=== PATIENT | female | born 1960 | race Caucasian/White ===

== ENCOUNTER → 2017-10-09 14:48 | Outpatient (CLI) | payer OTHER, SELFPAY ==
[2017-10-09 16:09] LABS: Erythrocyte Sedimentation Rate 2 MM/HR (0-20); Rheumatoid Factor 8.9 IU/mL (<12.0)
[2017-10-09 16:30] LABS: C-Reactive Protein Quant < 0.5 mg/dL (<1.0)
[2017-10-09 16:36] LABS: Thyroid Stimulating Hormone 1.77 uIU/mL (0.47-4.68)
[2017-10-09 17:13] LABS: Folate 18.4 ng/mL (2.76-20.0)
[2017-10-09 17:28] LABS: Vitamin B12 433 pg/mL (239-931)
[2017-10-11 11:32] LABS: CCP Antibody (IgG) < 16 Units (< 20)
[2017-10-11 23:20] LABS: ANA Screen POSITIVE (Negative); DNA Antibody Crithidia IFA NEGATIVE (Negative); Rheumatoid Factor <14 IU/mL; Sjogren Antiboday SS-A <1.0 NEG AI (<1.0 NEGATIVE); Sjogren Antiboday SS-B <1.0 NEG AI (<1.0 NEGATIVE); Sm Antibody <1.0 NEG AI (<1.0 NEGATIVE); Sm/RNP Antibody <1.0 NEG AI (<1.0 NEGATIVE)
== END ==
PROVIDERS: PCP Family Medicine; Visit Provider Internal Medicine
DX: M79.603 Pain in arm, unspecified (principal)
CPT/HCPCS: 36415; 82607; 82746; 83516; 84443; 85651; 86038; 86140; 86430

== ENCOUNTER → 2017-10-30 10:52 | Outpatient (CLI) | payer OTHER, SELFPAY | PROVIDERS: Family Provider Family Medicine; PCP Family Medicine; Visit Provider Internal Medicine | DX: M79.603 Pain in arm, unspecified (principal) | CPT/HCPCS: 95886; 95909 ==

== ENCOUNTER → 2017-12-12 16:25 | Outpatient (CLI) | payer OTHER, SELFPAY ==
[2017-12-12 17:43] LABS: Add Manual Diff / Slide Review NO; Eosinophils Percent Auto 2.9 % (2-4); Hematocrit 41.6 % (36-46); Hemoglobin 14.2 g/dL (12.0-16.0); Lymphocytes Percent Auto 37.5 % (25-40); Mean Corpuscular HGB Conc 34.1 % (30-36); Mean Corpuscular Hemoglobin 32.9 PG (26-34); Mean Corpuscular Volume 96.3 fL (80-100); Monocytes Percent Auto 7.8 % (3-14); Neutrophils Absolute Auto 4200 /uL (3000-5900); Neutrophils Percent Auto 50.8 % (50-75); Platelet Count 317 X10^3/uL (150-400); Red Blood Cell Count 4.32 X10^6/uL (4.0-5.2); Red Cell Distribution Width 12.9 % (11.6-14.8); White Blood Cell Count 8.3 X10^3/uL (4.5-11.0)
[2017-12-12 18:07] LABS: Alanine Aminotransferase 23 IU/L (9-52); Albumin 4.6 g/dL (3.5-5.0); Albumin Globulin Ratio 1.4 (1.0-2.8); Alkaline Phosphatase 50 U/L (38-126); Aspartate Aminotransferase 29 IU/L (14-36); BUN Creatinine Ratio 18.9 (6-22); Bilirubin Total 0.5 mg/dL (0.2-1.3); Blood Urea Nitrogen 17 mg/dL (7-17); Calcium 9.6 mg/dL (8.4-10.2); Carbon Dioxide 31 mmol/L (22-32); Chloride 99 mmol/L (98-107); Estimated Glomerular Filt Rate > 60.0 mL/min (>60); Globulin 3.3 g/dL (1.7-4.1); Glucose 94 mg/dL (70-100); HEMOLYSIS < 15 (0-50); Potassium 4.4 mmol/L (3.4-5.1); Sodium 141 mmol/L (137-145); Total Protein 7.9 g/dL (6.3-8.2)
[2017-12-12 18:14] LABS: C-Reactive Protein Quant < 0.5 mg/dL (<1.0)
[2017-12-12 18:17] LABS: Erythrocyte Sedimentation Rate 4 MM/HR (0-20)
[2017-12-15 02:49] LABS: ANA Screen, IFA Negative (Negative)
== END ==
PROVIDERS: PCP Family Medicine; Visit Provider Family Medicine
DX: M79.1 Myalgia (principal); R20.2 Paresthesia of skin; M79.601 Pain in right arm; M79.602 Pain in left arm
CPT/HCPCS: 36415; 80053; 85025; 85651; 86038; 86140

== ENCOUNTER → 2018-03-03 13:52 | Outpatient (CLI) | payer OTHER, SELFPAY ==
--- NOTE | 2018-03-03 | DI.MRI.S_ITS ---
PROCEDURE: MR CERVICAL SPINE WO CON INDICATIONS: CERVICALGIA TECHNIQUE: Noncontrast sagittal T1 spin echo and T2 fast spin echo, sagittal STIR, foraminal oblique sagittal T2 fast spin echo, and axial gradient echo or T2 fast spin echo through the cervical spine. COMPARISON: [facility], CR, XR CERVICAL SPINE WITH OBLIQUES, 01/09/2018, 12:16. FINDINGS: Image quality: Excellent. Alignment and Curvature: There is loss of normal cervical lordosis with focal kyphosis in the lower cervical spine. Grade 1 retrolisthesis of C5 on C6 and C6 on C7. Bone Marrow: Degenerative marrow signal changes are present at C6 and C7. Spinal Cord: Visualized spinal cord has normal size and signal. No cerebellar tonsillar herniation. Paraspinous Soft Tissues: No paravertebral masses. Prevertebral soft tissues are normal in thickness. C2-C3: Normal appearance. C3-C4: Normal appearance. C4-C5: Preserved disc height and disc signal. There is mild posterior disc bulge. The central canal is patent. Mild left foraminal stenosis. No right peristalsis. C5-C6: Vmcs-yl-pnnagguf loss disc height and disc desiccation. There is circumferential disc bulge and bilateral uncovertebral hypertrophy. The central canal is severely narrowed. There is mild flattening of the anterior cord at this level. Severe bilateral foraminal stenosis. C6-C7: Odty-zb-uwxrgwhe loss disc height and disc desiccation. There is circumferential disc bulge and bilateral uncovertebral hypertrophy. The central canal is severely narrowed. There is mild flattening of the anterior cord at this level. Severe bilateral foraminal stenosis. C7-T1: Normal appearance. IMPRESSION: 1. Multilevel degenerative disc disease and facet arthropathy as described. 2. Severe central canal stenosis at C5-C6 and C6-C7. 3. Severe foraminal stenosis at C5-C6 bilaterally and C6-C7 bilaterally. Dictated by: Maryann Moy M.D. on 03/03/2018 at 14:48 Approved by: Maryann Moy M.D. on 03/03/2018 at 17:46
== END ==
PROVIDERS: PCP Family Medicine; Visit Provider Specialist/Technologist Athletic Trainer
DX: M50.321 Other cervical disc degeneration at C4-C5 level (principal); M47.812 Spondylosis without myelopathy or radiculopathy, cervical region; M48.02 Spinal stenosis, cervical region
CPT/HCPCS: 72141

== ENCOUNTER → 2018-04-24 13:53 | Outpatient (CLI) | payer OTHER, SELFPAY ==
[2018-04-28 14:47] LABS: Fecal Immunochemical Test NOT DETECTED
== END ==
PROVIDERS: PCP Student in an Organized Health Care Education/Training Program; Visit Provider Student in an Organized Health Care Education/Training Program
DX: K92.1 Melena (principal); Z85.048 Personal history of other malignant neoplasm of rectum, rectosigmoid junction, and anus
CPT/HCPCS: 82274

== ENCOUNTER → 2018-05-03 16:42 | Outpatient (CLI) | payer OTHER, SELFPAY | PROVIDERS: PCP Student in an Organized Health Care Education/Training Program; Visit Provider Student in an Organized Health Care Education/Training Program | DX: K92.1 Melena (principal); Z85.048 Personal history of other malignant neoplasm of rectum, rectosigmoid junction, and anus ==

== ENCOUNTER → 2018-05-04 10:45 | Outpatient (CLI) | payer OTHER, SELFPAY ==
[2018-05-04 11:05] LABS: Occult Blood 1 Negative (Negative); Occult Blood 2 Negative (Negative)
[2018-05-04 11:06] LABS: Occult Blood 3 Negative (Negative)
== END ==
PROVIDERS: PCP Student in an Organized Health Care Education/Training Program; Visit Provider Student in an Organized Health Care Education/Training Program
DX: Z85.048 Personal history of other malignant neoplasm of rectum, rectosigmoid junction, and anus (principal)
CPT/HCPCS: 82270

== ENCOUNTER 2018-07-06 10:30 | Outpatient (RCR) | payer OTHER, SELFPAY ==
--- NOTE | 2018-06-26 15:15 | PT.OIE ---
Current Diagnoses Pain in arm, unspecified (06/25/18) Past Medical History (Last Updated 10/08/17 @ 12:41 by Berenice Salmeron) Allergy (Chronic) Hayfever (Chronic 1979) Seafood allergy (Chronic) Chicken pox (Resolved ~1965) Colon polyps (Resolved 2006) Colorectal cancer (Resolved 2006) Hemorrhoids (Resolved 2015) Hepatitis C (Resolved 1981) Past Surgical History (Last Updated 10/08/17 @ 12:30 by Berenice Salmeron) Anesthesia (Resolved) History of Achilles tendon repair (Resolved 2014) History of colonoscopy (Resolved 05/2015) History of repair of anterior cruciate ligament of right knee (Resolved 07/2005) Status post colectomy (Resolved 2006) Provider Visit Care Team Role Provider Type Indra Montana MD Attending Provider Physician Primary Care Provider Specialty: Internal Medicine Address: [address] [place] [address] Email: Physical Therapy Initial Evaluation PT-OP-A Visit Information Start: 06/25/18 09:51 Freq: Status: Active Protocol: Document 06/25/18 09:45 SAK (Rec: 06/25/18 15:13 [facility] [id number]) Out-Patient Physical Therapy Visit Information Visit Information Visit Type Initial Evaluation Visit Start Time 09:45 Visit Stop Time 10:40 Total Visit Minutes 55 Visit Number 1 Number of CASH MANAGEMENT OFFICER Visits 0 Evaluation Information Evaluation Date 06/25/18 PT-OP-B Current Condition Start: 06/25/18 09:51 Freq: Status: Active Protocol: Document 06/25/18 09:45 SAK (Rec: 06/25/18 15:13 [facility] [id number]) Current Condition History of Current Condition Onset Date April 2017 Current Complaints function-limiting bilateral neck and shoulder pain History of Current Condition Reports pain started after being very active and busy with work, lifting activities, gardening. Pain worsened to the point that she was unable to sleep, hands swelled severely. Was diagnosed with OA. Instead of medication is taking Tumeric and an herbal joint supplement which she reports being helpful. Pain and hand swelling have both improved some but persists and wants PT to see what else she can do for the pain. Prior Treatments and Tests EMG negative MRI and x-rays: osteoarthritis Future Testing and Treatments Planned None planned at this time. Treatment Goals Patient/Caregiver Goals Minimize pain, improve strength and flexibility, learn how to protect her joints. Prior Functional Status Baseline Function- ADL's Independent Baseline Function- Mobility Independent Baseline Function- Gait indep Baseline Function- Work/School indep without difficulty Baseline Function- Recreation/Hobbies no limitations Current Functional Impairments (Reported) Functional Limitations- ADL's some pain Functional Limitations- Mobility/Gait no problem Functional Limitations- Work/School some pain Functional Limitations- Recreation/ limited by pain and decreased Hobbies activity over the past year due to the pain PT-OP-C Subjective Start: 06/25/18 09:51 Freq: Status: Active Protocol: Document 06/25/18 09:45 SAK (Rec: 06/25/18 15:13 SAK [id number]) Patient Questionnaires Quick Dash- Upper Extremity Quick Dash UE Score 18 Quick Dash UE Impairment 1 to 19% Impaired (Score 1-19) OP-PT Pain Assessment Pain Assessment Grid Paper Pain Assessment Grid Completed Yes Location lupe cervical spine, shoulders and UE's Intensity 3 Scale Used Numeric (1 - 10) PT-OP-F Manual Assessment Start: 06/25/18 09:51 Freq: Status: Active Protocol: Document 06/25/18 09:45 SAK (Rec: 06/26/18 08:59 SAK [id number]) Manual Assessments Joint Mobility Assessment Joint Mobility Assessment decreased posterior glide bilateral GH joints, decreased AP C6-T3 PT-OP-H Neuro Start: 06/25/18 09:51 Freq: Status: Active Protocol: Document 06/25/18 09:45 SAK (Rec: 06/26/18 08:59 SAK [id number]) Sensation Evaluation Gross Sensation Gross Sensation Left UE Impaired Right UE Impaired Sensation Description Heaviness Pain Dermatome Impairments T12 PT-OP-J Posture/Palpation/Skin Start: 06/25/18 09:51 Freq: Status: Active Protocol: Document 06/25/18 09:45 SAK (Rec: 06/26/18 08:59 SAK [id number]) Posture Evaluation Position Sitting Head/C-Spine Posture Forward Head T-Spine Posture Increased Kyphosis L-Spine Posture Increased Lordosis Shoulder Posture (L) Rounded (R) Rounded Palpation Assessment Location upper traps Palpation Findings Soft Tissue Tightness Muscle Guarding Trigger Point c/s Palpation Findings Soft Tissue Tightness Muscle Guarding Skin Assessment Edema Assessment bilateral hands Edema Degree 2+ Edema Appearance Discolored Puffy Subjective Edema Description Tightness PT-OP-K Range of Motion Start: 06/25/18 09:51 Freq: Status: Active Protocol: Document 06/25/18 09:45 SAK (Rec: 06/26/18 08:59 SAK [id number]) Cervical Spine Range of Motion Cervical Spine Active Testing Position Sitting Flexion 55 Extension 60 Rotation Left 50 Rotation Right 55 Lateral Flexion Left 40 Lateral Flexion Right 45 ROM Limitations Soft Tissue Tightness Bony Restriction Pain Shoulder Goniometric Range of Motion Shoulder Measured in Degrees Left Active Testing Position Sitting Flexion 165 Extension 40 Abduction 160 External Rotation at 45 degrees 60 Abduction Internal Rotation Behind Back (text) T5 Right Active Testing Position Sitting Flexion 165 Extension 40 Abduction 160 External Rotation at 45 degrees 65 Abduction Internal Rotation Behind Back (text) T3 Shoulder ROM Limitations Shoulder ROM Limitations Soft Tissue Tightness Bony Restriction Pain Elbow/Forearm Range of Motion Elbow/Forearm Measured in Degrees lupe Elbow/Forearm ROM WFL Yes Wrist Goniometric Range of Motion Wrist Measured in Degrees lupe Wrist ROM WFL Yes Finger Goniometric Range of Motion Finger ROM Limitations Finger ROM Limitations Swelling PT-OP-L Special Tests Start: 06/25/18 09:51 Freq: Status: Active Protocol: Document 06/25/18 09:45 SAK (Rec: 06/26/18 08:59 [facility] [id number]) Special Tests Cervical Spine Special Tests Upper Limb Tension Test Test Results positive lupe Foraminal Compression Test Results positive increase in pain Traction Test Results positive decrease pain Shoulder Special Tests Elevation Impingement Test Results negative lupe Drop Arm Rotator Cuff Test Results negative lupe Belly Press Test Results negative lupe PT-OP-M Strength Start: 06/25/18 09:51 Freq: Status: Active Protocol: Document 06/25/18 09:45 SAK (Rec: 06/26/18 15:15 SAK [id number]) Cervical Spine Strength Cervical Spine Manual Muscle Testing Testing Position Sitting Flexion (C1-2) 4+ Good+ Extension 4+ Good+ Rotation Left 4+ Good+ Rotation Right 4+ Good+ Lateral Flexion Left (C3) 4+ Good+ Lateral Flexion Right (C3) 4+ Good+ Shoulder Strength Shoulder Manual Muscle Testing lupe Flexion 4 Good Extension 4 Good Abduction (C5) 4 Good Adduction 4- Good- External Rotation 4 Good Elbow/Forearm Strength Elbow and Forearm Manual Muscle Testing lupe Flexion (C6) 4+ Good+ Extension (C7) 4+ Good+ PT-OP-Q Treatments Start: 06/25/18 09:51 Freq: Status: Active Protocol: Document 06/25/18 09:45 SAK (Rec: 06/26/18 15:15 SAK [id number]) Self-Care/Home Management Treatment Education Patient Education Home Exercise Program Pain Management Posture Other Education Issued written information regarding posture and HEP Activities Self-Care/Home Management Activities Use of heat for neck and shoulder pain, paraffin for hands, isotoner gloves or compression gloves for edema in hands PT-OP-R Modalities Start: 06/25/18 09:51 Freq: Status: Active Protocol: Document 06/25/18 09:45 SAK (Rec: 06/26/18 15:15 SAK [id number]) Hot Pack/Cold Pack Treatment neck, lupe shoulders Patient Position Hooklying Treatment Duration (minutes) 15 Patient Tolerance Good PT-OP-T Assessment and Plan Start: 06/25/18 09:51 Freq: Status: Active Protocol: Document 06/25/18 09:45 SAK (Rec: 06/26/18 15:15 [facility] [id number]) Physical Therapy Assessment Rehab Potential Rehabilitation Potential Good Evaluation Complexity Number of Personal Factors/Comorbidities 1-2 Number of Body Systems Impaired 3 Clinical Presentation at Evaluation Evolving Impairments Impairments Pain Posture ROM Goals 3 Impairment weakness of posterior chain musculature Short Term Goal (STG) Instruct patient in HEP STG Duration 2 wks Usp Goal (LTG) Strength WNL 2 Impairment Decreased neck and shoulder ROM Short Term Goal (STG) Instruct patient in HEP for neck and shoulder ROM STG Duration 2 wk2 Kennel Operator Goal (LTG) Improve ROM to neck and shoulder to WNL to allow for patient to do all usual activities LTG Duration 2 months 1 Impairment function-limiting pain Short Term Goal (STG) Educate patient regarding posture, joint protection, pain management, HEP STG Duration 2 wks Usp Goal (LTG) Patient to demonstrate good understanding of neutral postural alignment, joint protection and pain managment principles and be independent with HEP LTG Duration 2 months Assessment Summary Assessment Patient presents with function -limiting pain in neck, shoulders, and hands related to diagnosis of OA. Patient previously very physically active, but due to severity of pain has significantly cut back on her usual activities. She presents with decreased ROM and strength, postural dysfunction; would benefit from skilled physical therapy intervention to address her goals. She is highly motivated and anticipate short course of physical therapy with her continueing HEP and pain managment independently Physical Therapy Plan Frequency and Duration Frequency of Treatment 1x/Week Duration of Treatment 2 months Plan of Care Start Date 06/25/18 Therapeutic Interventions Therapeutic Interventions Aquatic Therapy Home Exercise Program Manual Therapy Patient/Caregiver Education Self-Care/Home Management Soft Tissue Mobilization Taping Therapeutic Activities Therapeutic Exercises Modalities Cold Pack/Ice Massage Electric Stimulation Hot Packs Ultrasound Next Visit Focus/Plan Next Note Type Treatment Note Next Visit Plan Review HEP, progress as tolerated.
--- NOTE | 2018-06-26 15:15 | PT.OPPOC ---
Current Diagnoses Pain in arm, unspecified (06/25/18) Provider Visit Care Team Role Provider Type Indra Montana MD Attending Provider Physician Primary Care Provider Specialty: Internal Medicine Address: [address] [place] [address], [id number] Email: Plan Of Care PT-OP-T Assessment and Plan Start: 06/25/18 09:51 Freq: Status: Active Protocol: Document 06/25/18 09:45 [facility] (Rec: 06/26/18 15:15 [facility] [id number]) Physical Therapy Assessment Rehab Potential Rehabilitation Potential Good Evaluation Complexity Number of Personal Factors/Comorbidities 1-2 Number of Body Systems Impaired 3 Clinical Presentation at Evaluation Evolving Impairments Impairments Pain Posture ROM Goals 3 Impairment weakness of posterior chain musculature Short Term Goal (STG) Instruct patient in HEP STG Duration 2 wks Usp Goal (LTG) Strength WNL 2 Impairment Decreased neck and shoulder ROM Short Term Goal (STG) Instruct patient in HEP for neck and shoulder ROM STG Duration 2 wk2 Usp Goal (LTG) Improve ROM to neck and shoulder to WNL to allow for patient to do all usual activities LTG Duration 2 months 1 Impairment function-limiting pain Short Term Goal (STG) Educate patient regarding posture, joint protection, pain management, HEP STG Duration 2 wks Usp Goal (LTG) Patient to demonstrate good understanding of neutral postural alignment, joint protection and pain managment principles and be independent with HEP LTG Duration 2 months Assessment Summary Assessment Patient presents with function -limiting pain in neck, shoulders, and hands related to diagnosis of OA. Patient previously very physically active, but due to severity of pain has significantly cut back on her usual activities. She presents with decreased ROM and strength, postural dysfunction; would benefit from skilled physical therapy intervention to address her goals. She is highly motivated and anticipate short course of physical therapy with her continueing HEP and pain managment independently Physical Therapy Plan Frequency and Duration Frequency of Treatment 1x/Week Duration of Treatment 2 months Plan of Care Start Date 06/25/18 Therapeutic Interventions Therapeutic Interventions Aquatic Therapy Home Exercise Program Manual Therapy Patient/Caregiver Education Self-Care/Home Management Soft Tissue Mobilization Taping Therapeutic Activities Therapeutic Exercises Modalities Cold Pack/Ice Massage Electric Stimulation Hot Packs Ultrasound Next Visit Focus/Plan Next Note Type Treatment Note Next Visit Plan Review HEP, progress as tolerated. Plan of Care Dates Plan of Care Start Date 06/25/18 Please Sign and Return: I have reviewed this Plan of Care and certify that the skilled therapy services above are required to meet the patient?s needs. Physician Signature Date Printed Name and Credentials Clinical Instructor Signature Printed Name and Credentials
--- NOTE | 2018-07-06 11:23 | PT.OTN ---
Current Diagnoses Pain in arm, unspecified (07/06/18) Physical Therapy Treatment Note PT-OP-A Visit Information Start: 06/25/18 09:51 Freq: Status: Active Protocol: Document 07/06/18 10:30 DCW (Rec: 07/06/18 11:23 [facility]W [id number]) Out-Patient Physical Therapy Visit Information Visit Information Visit Type Treatment Note Visit Start Time 10:30 Visit Stop Time 11:15 PT-OP-B Current Condition Start: 06/25/18 09:51 Freq: Status: Active Protocol: Document 06/25/18 09:45 SAK (Rec: 06/25/18 15:13 SAK [id number]) Current Condition History of Current Condition Onset Date April 2017 Current Complaints function-limiting bilateral neck and shoulder pain History of Current Condition Reports pain started after being very active and busy with work, lifting activities, gardening. Pain worsened to the point that she was unable to sleep, hands swelled severely. Was diagnosed with OA. Instead of medication is taking Tumeric and an herbal joint supplement which she reports being helpful. Pain and hand swelling have both improved some but persists and wants PT to see what else she can do for the pain. Prior Treatments and Tests EMG negative MRI and x-rays: osteoarthritis Future Testing and Treatments Planned None planned at this time. Treatment Goals Patient/Caregiver Goals Minimize pain, improve strength and flexibility, learn how to protect her joints. Prior Functional Status Baseline Function- ADL's Independent Baseline Function- Mobility Independent Baseline Function- Gait indep Baseline Function- Work/School indep without difficulty Baseline Function- Recreation/Hobbies no limitations Current Functional Impairments (Reported) Functional Limitations- ADL's some pain Functional Limitations- Mobility/Gait no problem Functional Limitations- Work/School some pain Functional Limitations- Recreation/ limited by pain and decreased Hobbies activity over the past year due to the pain PT-OP-C Subjective Start: 06/25/18 09:51 Freq: Status: Active Protocol: Document 07/06/18 10:30 DCW (Rec: 07/06/18 11:23 DCW [id number]) OP-PT Subjective Patient Comments Patient Comments Pt has been compliant with her HEP. Admits her arms aren't as bad as they were 9 months ago, but still not great. PT-OP-F Manual Assessment Start: 06/25/18 09:51 Freq: Status: Active Protocol: Document 06/25/18 09:45 SAK (Rec: 06/26/18 08:59 SAK [id number]) Manual Assessments Joint Mobility Assessment Joint Mobility Assessment decreased posterior glide bilateral GH joints, decreased AP C6-T3 PT-OP-H Neuro Start: 06/25/18 09:51 Freq: Status: Active Protocol: Document 06/25/18 09:45 SAK (Rec: 06/26/18 08:59 SAK [id number]) Sensation Evaluation Gross Sensation Gross Sensation Left UE Impaired Right UE Impaired Sensation Description Heaviness Pain Dermatome Impairments T12 PT-OP-J Posture/Palpation/Skin Start: 06/25/18 09:51 Freq: Status: Active Protocol: Document 06/25/18 09:45 SAK (Rec: 06/26/18 08:59 SAK [id number]) Posture Evaluation Position Sitting Head/C-Spine Posture Forward Head T-Spine Posture Increased Kyphosis L-Spine Posture Increased Lordosis Shoulder Posture (L) Rounded (R) Rounded Palpation Assessment Location upper traps Palpation Findings Soft Tissue Tightness Muscle Guarding Trigger Point c/s Palpation Findings Soft Tissue Tightness Muscle Guarding Skin Assessment Edema Assessment bilateral hands Edema Degree 2+ Edema Appearance Discolored Puffy Subjective Edema Description Tightness PT-OP-K Range of Motion Start: 06/25/18 09:51 Freq: Status: Active Protocol: Document 06/25/18 09:45 SAK (Rec: 06/26/18 08:59 SAK [id number]) Cervical Spine Range of Motion Cervical Spine Active Testing Position Sitting Flexion 55 Extension 60 Rotation Left 50 Rotation Right 55 Lateral Flexion Left 40 Lateral Flexion Right 45 ROM Limitations Soft Tissue Tightness Bony Restriction Pain Shoulder Goniometric Range of Motion Shoulder Measured in Degrees Left Active Testing Position Sitting Flexion 165 Extension 40 Abduction 160 External Rotation at 45 degrees 60 Abduction Internal Rotation Behind Back (text) T5 Right Active Testing Position Sitting Flexion 165 Extension 40 Abduction 160 External Rotation at 45 degrees 65 Abduction Internal Rotation Behind Back (text) T3 Shoulder ROM Limitations Shoulder ROM Limitations Soft Tissue Tightness Bony Restriction Pain Elbow/Forearm Range of Motion Elbow/Forearm Measured in Degrees lupe Elbow/Forearm ROM WFL Yes Wrist Goniometric Range of Motion Wrist Measured in Degrees lupe Wrist ROM WFL Yes Finger Goniometric Range of Motion Finger ROM Limitations Finger ROM Limitations Swelling PT-OP-L Special Tests Start: 06/25/18 09:51 Freq: Status: Active Protocol: Document 06/25/18 09:45 SAK (Rec: 06/26/18 08:59 SAK [id number]) Special Tests Cervical Spine Special Tests Upper Limb Tension Test Test Results positive lupe Foraminal Compression Test Results positive increase in pain Traction Test Results positive decrease pain Shoulder Special Tests Elevation Impingement Test Results negative lupe Drop Arm Rotator Cuff Test Results negative lupe Belly Press Test Results negative lupe PT-OP-M Strength Start: 06/25/18 09:51 Freq: Status: Active Protocol: Document 06/25/18 09:45 SAK (Rec: 06/26/18 15:15 SAK [id number]) Cervical Spine Strength Cervical Spine Manual Muscle Testing Testing Position Sitting Flexion (C1-2) 4+ Good+ Extension 4+ Good+ Rotation Left 4+ Good+ Rotation Right 4+ Good+ Lateral Flexion Left (C3) 4+ Good+ Lateral Flexion Right (C3) 4+ Good+ Shoulder Strength Shoulder Manual Muscle Testing lupe Flexion 4 Good Extension 4 Good Abduction (C5) 4 Good Adduction 4- Good- External Rotation 4 Good Elbow/Forearm Strength Elbow and Forearm Manual Muscle Testing lupe Flexion (C6) 4+ Good+ Extension (C7) 4+ Good+ PT-OP-Q Treatments Start: 06/25/18 09:51 Freq: Status: Active Protocol: Document 07/06/18 10:30 DCW (Rec: 07/06/18 11:23 DCW [id number]) Therapeutic Exercises Supine Exercises Horizontal Adduction Supine Exercise Name Horizontal Adduction Side bilateral Resistance 5# Serratus Punch Supine Exercise Name Supine Punch Side bilateral Resistance 5# Standing Exercises Shoulder Flexion Standing Exercise Name Flexion Side bilateral Resistance 5# Shoulder Abduction Standing Exercise Name Abduction Side bilateral Resistance 5# Chest Press Standing Exercise Name Chest Press Side bilateral Resistance 10# Equipment Used Wand Horizontal Abduction Standing Exercise Name Shoulder Horizontal Abduction Side bilateral Resistance Lv 2 Equipment Used T-band Rows Standing Exercise Name Rows Side bilateral Resistance Lv 3 Equipment Used T-band Shoulder Extension Standing Exercise Name Extension Side bilateral Resistance Lv 3 Equipment Used T-band Manual Therapy Treatment Soft Tissue Mobilization Upper Trap Body Location UT Mobilization Type Sustained Pressure Trigger Point Release Intensity/Depth Moderate Body Position Hooklying Joint Mobilizations Cervical Spine Joint C-spine Direction P->A Grade III Body Position Supine Comments Especially C3 and C4 Manual Traction Cervical Details Cervical Traction Body Position Supine PT-OP-R Modalities Start: 06/25/18 09:51 Freq: Status: Active Protocol: Document 07/06/18 10:30 DCW (Rec: 07/06/18 11:23 DCW [id number]) Electric Stimulation Electric Stimulation Interferential Current (IFC) Body Location C-spine/Shoulders Duration (Minutes) 15 Patient Position Supine Combined With Heat/Cold Hot Pack PT-OP-T Assessment and Plan Start: 06/25/18 09:51 Freq: Status: Active Protocol: Document 07/06/18 10:30 DCW (Rec: 07/06/18 11:23 DCW [id number]) Physical Therapy Assessment Impairments Impairments Pain Posture ROM Goals 3 Impairment weakness of posterior chain musculature Short Term Goal (STG) Instruct patient in HEP STG Duration 2 wks Painter Set Goal (LTG) Strength WNL 2 Impairment Decreased neck and shoulder ROM Short Term Goal (STG) Instruct patient in HEP for neck and shoulder ROM STG Duration 2 wk2 Half-Way Goal (LTG) Improve ROM to neck and shoulder to WNL to allow for patient to do all usual activities LTG Duration 2 months 1 Impairment function-limiting pain Short Term Goal (STG) Educate patient regarding posture, joint protection, pain management, HEP STG Duration 2 wks Half-Way Goal (LTG) Patient to demonstrate good understanding of neutral postural alignment, joint protection and pain management principles and be independent with HEP LTG Duration 2 months Assessment Summary Assessment Pt tolerated manual therapy well, and is very motivated to continue working on her HEP. Physical Therapy Plan Frequency and Duration Frequency of Treatment 1x/Week Duration of Treatment 2 months Plan of Care Start Date 06/25/18 Plan of Care End Date 08/25/18 Therapeutic Interventions Therapeutic Interventions Aquatic Therapy Home Exercise Program Manual Therapy Patient/Caregiver Education Self-Care/Home Management Soft Tissue Mobilization Taping Therapeutic Activities Therapeutic Exercises Modalities Cold Pack/Ice Massage Electric Stimulation Hot Packs Ultrasound Next Visit Focus/Plan Next Note Type Treatment Note Next Visit Plan Review HEP, progress as tolerated.
--- NOTE | 2018-10-12 10:27 | PT.OPDS ---
Current Diagnoses Pain in arm, unspecified (07/06/18) Provider Visit Care Team Role Provider Type Indra Montana MD Attending Provider Physician Primary Care Provider Specialty: Internal Medicine Address: [address] [place] [address], [facility] Email: Visit Number Visit Number 1 Discharge Summary PT-OP-B Current Condition Start: 06/25/18 09:51 Freq: Status: Active Protocol: Document 06/25/18 09:45 SAK (Rec: 06/25/18 15:13 SAK [id number]) Current Condition History of Current Condition Onset Date April 2017 Current Complaints function-limiting bilateral neck and shoulder pain History of Current Condition Reports pain started after being very active and busy with work, lifting activities, gardening. Pain worsened to the point that she was unable to sleep, hands swelled severely. Was diagnosed with OA. Instead of medication is taking Tumeric and an herbal joint supplement which she reports being helpful. Pain and hand swelling have both improved some but persists and wants PT to see what else she can do for the pain. Prior Treatments and Tests EMG negative MRI and x-rays: osteoarthritis Future Testing and Treatments Planned None planned at this time. Treatment Goals Patient/Caregiver Goals Minimize pain, improve strength and flexibility, learn how to protect her joints. Prior Functional Status Baseline Function- ADL's Independent Baseline Function- Mobility Independent Baseline Function- Gait indep Baseline Function- Work/School indep without difficulty Baseline Function- Recreation/Hobbies no limitations Current Functional Impairments (Reported) Functional Limitations- ADL's some pain Functional Limitations- Mobility/Gait no problem Functional Limitations- Work/School some pain Functional Limitations- Recreation/ limited by pain and decreased Hobbies activity over the past year due to the pain PT-OP-C Subjective Start: 06/25/18 09:51 Freq: Status: Active Protocol: Document 07/06/18 10:30 DCW (Rec: 07/06/18 11:23 DCW [id number]) OP-PT Subjective Patient Comments Patient Comments Pt has been compliant with her HEP. Admits her arms aren't as bad as they were 9 months ago, but still not great. PT-OP-F Manual Assessment Start: 06/25/18 09:51 Freq: Status: Active Protocol: Document 06/25/18 09:45 SAK (Rec: 06/26/18 08:59 [facility] [id number]) Manual Assessments Joint Mobility Assessment Joint Mobility Assessment decreased posterior glide bilateral GH joints, decreased AP C6-T3 PT-OP-H Neuro Start: 06/25/18 09:51 Freq: Status: Active Protocol: Document 06/25/18 09:45 SAK (Rec: 06/26/18 08:59 SAK [id number]) Sensation Evaluation Gross Sensation Gross Sensation Left UE Impaired Right UE Impaired Sensation Description Heaviness Pain Dermatome Impairments T12 PT-OP-J Posture/Palpation/Skin Start: 06/25/18 09:51 Freq: Status: Active Protocol: Document 06/25/18 09:45 SAK (Rec: 06/26/18 08:59 SAK [id number]) Posture Evaluation Position Sitting Head/C-Spine Posture Forward Head T-Spine Posture Increased Kyphosis L-Spine Posture Increased Lordosis Shoulder Posture (L) Rounded (R) Rounded Palpation Assessment Location upper traps Palpation Findings Soft Tissue Tightness Muscle Guarding Trigger Point c/s Palpation Findings Soft Tissue Tightness Muscle Guarding Skin Assessment Edema Assessment bilateral hands Edema Degree 2+ Edema Appearance Discolored Puffy Subjective Edema Description Tightness PT-OP-K Range of Motion Start: 06/25/18 09:51 Freq: Status: Active Protocol: Document 06/25/18 09:45 SAK (Rec: 06/26/18 08:59 [facility] [id number]) Cervical Spine Range of Motion Cervical Spine Active Testing Position Sitting Flexion 55 Extension 60 Rotation Left 50 Rotation Right 55 Lateral Flexion Left 40 Lateral Flexion Right 45 ROM Limitations Soft Tissue Tightness Bony Restriction Pain Shoulder Goniometric Range of Motion Shoulder Left Active Testing Position Sitting Flexion 165 Extension 40 Abduction 160 External Rotation at 45 degrees 60 Abduction Internal Rotation Behind Back (text) T5 Right Active Testing Position Sitting Flexion 165 Extension 40 Abduction 160 External Rotation at 45 degrees 65 Abduction Internal Rotation Behind Back (text) T3 Shoulder ROM Limitations Shoulder ROM Limitations Soft Tissue Tightness Bony Restriction Pain Elbow/Forearm Range of Motion Elbow/Forearm lupe Elbow/Forearm ROM WFL Yes Wrist Goniometric Range of Motion Wrist lupe Wrist ROM WFL Yes Finger Goniometric Range of Motion Finger ROM Limitations Finger ROM Limitations Swelling PT-OP-L Special Tests Start: 06/25/18 09:51 Freq: Status: Active Protocol: Document 06/25/18 09:45 SAK (Rec: 06/26/18 08:59 [facility] [id number]) Special Tests Cervical Spine Special Tests Upper Limb Tension Test Test Results positive lupe Foraminal Compression Test Results positive increase in pain Traction Test Results positive decrease pain Shoulder Special Tests Elevation Impingement Test Results negative lupe Drop Arm Rotator Cuff Test Results negative lupe Belly Press Test Results negative lupe PT-OP-M Strength Start: 06/25/18 09:51 Freq: Status: Active Protocol: Document 06/25/18 09:45 [facility] (Rec: 06/26/18 15:15 [facility] [id number]) Cervical Spine Strength Cervical Spine Manual Muscle Testing Testing Position Sitting Flexion (C1-2) 4+ Good+ Extension 4+ Good+ Rotation Left 4+ Good+ Rotation Right 4+ Good+ Lateral Flexion Left (C3) 4+ Good+ Lateral Flexion Right (C3) 4+ Good+ Shoulder Strength Shoulder Manual Muscle Testing lupe Flexion 4 Good Extension 4 Good Abduction (C5) 4 Good Adduction 4- Good- External Rotation 4 Good Elbow/Forearm Strength Elbow and Forearm Manual Muscle Testing lupe Flexion (C6) 4+ Good+ Extension (C7) 4+ Good+ PT-OP-T Assessment and Plan Start: 06/25/18 09:51 Freq: Status: Active Protocol: Document 10/12/18 10:26 [facility] (Rec: 10/12/18 10:27 [facility] [id number]) Physical Therapy Plan Discharge Physical Therapy Discharge Reasons No Longer Attending PT
== END 2018-10-12 15:00 | disposition home or self-care (01) ==
LOC: PHYS 10:30
PROVIDERS: PCP Student in an Organized Health Care Education/Training Program; Visit Provider Student in an Organized Health Care Education/Training Program
DX: M79.603 Pain in arm, unspecified (principal)
CPT/HCPCS: 97010; 97014; 97110; 97140; 97162; 97535; G0283

== ENCOUNTER → 2019-04-24 12:38 | Outpatient (CLI) | payer OTHER, SELFPAY ==
--- NOTE | 2019-04-24 12:40 | DI.MG.S_ITS ---
BILATERAL DIGITAL SCREENING MAMMOGRAM 3D/2D WITH CAD: 04/24/2019 CLINICAL: Routine screening. Family history of breast cancer. Comparison is made to exams dated: 03/04/2017 mammogram, 02/07/2016 mammogram, and 02/03/2015 mammogram - [facility]. The tissue of both breasts is extremely dense, which lowers the sensitivity of mammography. Current study was also evaluated with a Computer Aided Detection (CAD) system. No significant masses, calcifications, or other findings are seen in either breast. There has been no significant interval change. IMPRESSION: NEGATIVE There is no mammographic evidence of malignancy. A 1 year screening mammogram is recommended. This exam was interpreted at Station ID: [id number]. NOTE: For mammograms, a report in lay terms will be sent to the patient. Approximately 15% of breast malignancies will not be visualized mammographically. In the management of a palpable breast mass, a negative mammogram must not discourage biopsy of a clinically suspicious lesion. Electronically Signed By: Milton romo/sydnee:04/26/2019 13:49:32 letter sent: Normal Exam ACR BI-RADS Category 1: Negative 3341F
== END ==
PROVIDERS: PCP Student in an Organized Health Care Education/Training Program; Visit Provider Student in an Organized Health Care Education/Training Program
DX: Z12.31 Encounter for screening mammogram for malignant neoplasm of breast (principal); Z80.3 Family history of malignant neoplasm of breast
CPT/HCPCS: 77063; 77067

== ENCOUNTER → 2019-05-28 11:06 | Outpatient (CLI) | payer OTHER, SELFPAY ==
--- NOTE | 2019-05-28 11:07 | DI.MRI.S_ITS ---
PROCEDURE: MR KNEE RT WO CON INDICATIONS: right knee pain TECHNIQUE: Noncontrast sagittal PD fast spin echo and T2 fast spin echo with fat saturation, sagittal 3-D FLASH with fat saturation; coronal T1 spin echo and PD fast spin echo with fat saturation, and axial PD fast spin echo with fat saturation through the knee. COMPARISON: None. FINDINGS: Image quality: Diagnostic. Menisci: Complex oblique tear involving posterior horn of medial meniscus is seen extending to superior articulating surface. There is no focal lateral meniscal tear. The The meniscal root ligaments appear intact. Cruciate ligaments: Patient is status post prior anterior cruciate ligament repair. ACL graft is intact. PCL is intact. Medial structures: Low to moderate grade MCL sprain/partial thickness tear is seen. The posterior oblique ligament, semimembranosus tendon insertions, oblique popliteal ligament, and meniscocapsular junction appear intact. Visualized portions of the pes anserinus tendons appear normal. No abnormal bursal fluid. Lateral structures: The lateral collateral ligament, long and short heads of the biceps femoris tendon appear intact. The popliteus tendon appears normal; the popliteofibular ligament appears intact. The posterosuperior and anteroinferior popliteomeniscal fascicles appear intact. The arcuate and fabellofibular ligaments appear intact, on either side of the lateral inferior geniculate artery. Iliotibial band appears normal. Anterior structures: The quadriceps and patellar tendons appear intact. Patellar alignment is normal. No femoral trochlear dysplasia or ventral trochlear prominence. No edema in the infrapatellar fat pad. Bones and cartilage: Post surgical changes are noted in distal femur and proximal tibia. No bone marrow contusions or fractures. Chondromalacia involving articulating cartilage and medial femoral tibial compartment is seen. Low-grade chondromalacia involving lateral facet of patella cartilage is also noted. Joint space: There is small amount of joint fluid. Small popliteal cyst is seen. Normal appearing synovial plicae are incidentally noted. IMPRESSION: 1. Prior ACL repair with post surgical changes. ACL graft is intact. PCL is intact. 2. Complex oblique tear involving posterior horn of medial meniscus extending to superior articulating surface. No focal lateral meniscal tear. 3. Low to moderate grade proximal MCL sprain/partial thickness tear. 4. Low-grade chondromalacia involving weight-bearing portion of medial femoral condyle and lateral facet of patella cartilage. Dictated by: Surjit Echavarria M.D. on 05/28/2019 at 12:40 Approved by: Surjit Echavarria M.D. on 05/28/2019 at 15:52
== END ==
PROVIDERS: PCP Student in an Organized Health Care Education/Training Program; Referring Provider Student in an Organized Health Care Education/Training Program; Visit Provider Student in an Organized Health Care Education/Training Program
DX: M25.561 Pain in right knee (principal); S83.231A Complex tear of medial meniscus, current injury, right knee, initial encounter; S83.411A Sprain of medial collateral ligament of right knee, initial encounter; M22.41 Chondromalacia patellae, right knee
CPT/HCPCS: 73721

== ENCOUNTER → 2019-11-17 13:51 | Outpatient (CLI) | payer OTHER, SELFPAY ==
[2019-11-19 01:09] LABS: COVID19 Sendout Not Detected (Not Detected)
== END ==
PROVIDERS: PCP Student in an Organized Health Care Education/Training Program; Visit Provider Physician Assistant
DX: Z11.59 Encounter for screening for other viral diseases (principal); J02.9 Acute pharyngitis, unspecified; R52 Pain, unspecified
CPT/HCPCS: 87635

== ENCOUNTER → 2020-06-23 16:37 | Outpatient (CLI) | payer OTHER, SELFPAY ==
[2020-06-23] MEDS: COVID-19 VACC, Ad26(JANSSEN)/PF 0.5 ML IM (16:41)
== END ==
PROVIDERS: PCP Student in an Organized Health Care Education/Training Program; Visit Provider Internal Medicine
DX: Z23 Encounter for immunization (principal)
CPT/HCPCS: 0031A; 91303

== ENCOUNTER → 2020-07-10 09:00 | Outpatient (CLI) | payer OTHER, SELFPAY | PROVIDERS: PCP Student in an Organized Health Care Education/Training Program; Referring Provider Student in an Organized Health Care Education/Training Program; Visit Provider Student in an Organized Health Care Education/Training Program | DX: I07.1 Rheumatic tricuspid insufficiency (principal); R06.02 Shortness of breath; Z83.49 Family history of other endocrine, nutritional and metabolic diseases | CPT/HCPCS: 93306 ==

== ENCOUNTER → 2020-07-10 16:00 | Outpatient (CLI) | payer OTHER, SELFPAY ==
--- NOTE | 2020-07-10 16:01 | DI.MG.S_ITS ---
BILATERAL DIGITAL SCREENING MAMMOGRAM 3D/2D WITH CAD: 07/10/2020 CLINICAL: Routine screening. Family history of breast cancer. Comparison is made to exams dated: 04/24/2019 mammogram, 03/04/2017 mammogram, and 02/07/2016 mammogram - [facility]. The tissue of both breasts is heterogeneously dense. This may lower the sensitivity of mammography. Current study was also evaluated with a Computer Aided Detection (CAD) system. No significant masses, calcifications, or other findings are seen in either breast. There has been no significant interval change. IMPRESSION: NEGATIVE There is no mammographic evidence of malignancy. A 1 year screening mammogram is recommended. This exam was interpreted at Station ID: [id number]. NOTE: For mammograms, a report in lay terms will be sent to the patient. Approximately 15% of breast malignancies will not be visualized mammographically. In the management of a palpable breast mass, a negative mammogram must not discourage biopsy of a clinically suspicious lesion. Electronically Signed By: Efrain muro/sydnee:07/10/2020 16:41:07 letter sent: Normal Exam ACR BI-RADS Category 1: Negative 3341F
--- NOTE | 2020-07-10 16:01 | DI.ECHO.S_ITS ---
[facility] +---------+ : : [address] [address] : : : : [id number] : : : : Phone: [phone]+ Echocardiogram Report + + :Name: STEVAN POWERS Study Date: 07/10/2020 Height: 65 in : :[facility] ReadingLocation: Weight: 140 lb : : Gender: Female BSA: 1.7 m2 : :: 1960 Age: 60 yrs BP: 106/71 mmHg: :Reason For Study: SOB, FAMILY HISTORY OF AMYLOIDOSIS : :Ordering Physician: UNRULY, : :TATY Performed By: Sumaya Rios : :Referring: TATY TOLLIVER : + + Interpretation Summary The left ventricle is normal in size and wall thickness. The ejection fraction is estimated to be 55-60%. Left ventricular global longitudinal strain average is -17.7%. No significant wall thickness. Strain pattern did not reveal typical garrison on top pattern which will suggest amyloidosis. No significant diastolic dysfunction. EKG monitoring did not show low voltage complexes. Overall no obvious echocardiographic features of amyloidosis seen. The right ventricle is normal in size and function. There is mild tricuspid regurgitation. Pulmonary artery pressures cannot be estimated because of the lack of a measurable TR jet velocity but the IVC suggests a CVP of around 3 mmHg. Procedure: A two-dimensional transthoracic echocardiogram with color flow and Doppler was performed. The study quality was technically adequate. There is no prior echocardiogram noted for this patient. The patient was in sinus rhythm with heart rates between 63-82 bpm during the exam. Left Ventricle: The left ventricle is normal in size and wall thickness. There is no thrombus. Left ventricular global longitudinal strain average is - 17.7%. The ejection fraction is estimated to be 55-60%. There are no focal wall motion abnormalities. Diastolic parameters suggest a relaxation abnormality of the left ventricle, consistent with probable normal filling pressures. Right Ventricle: The right ventricle is normal in size and function. Atria: The left atrium is mildly dilated. Right atrial size is normal. There is no Doppler evidence for an interatrial shunt. Mitral Valve: The mitral valve is normal in structure and function. There is trace mitral regurgitation. Aortic Valve: The aortic valve is trileaflet. The aortic valve opens well. There is no aortic valve stenosis. No aortic regurgitation is present. Tricuspid Valve: The tricuspid valve is normal in structure and function. There is mild tricuspid regurgitation. Pulmonary artery pressures cannot be estimated because of the lack of a measurable TR jet velocity but the IVC suggests a CVP of around 3 mmHg. Pulmonic Valve: The pulmonic valve is not well visualized. There is trace pulmonic regurgitation. Great Vessels: The aortic root is normal size. The dimensions of the ascending aorta are normal. The IVC is of normal diameter and collapses greater than 50% with a sniff. This suggests a low right atrial pressure of 3 mm Hg. Pericardium/ Pleura There is no pericardial effusion. There is no pleural effusion. MMode/2D Measurements & Calculations LVIDd: 4.6 cm LVOT diam: 2.0 cm LVIDs: 3.0 cm Ao root diam: 3.0 cm FS: 35.3 % asc Aorta Diam: 2.9 cm EPSS: 0.70 cm Ao Arch Diam (Prox Trans): 2.6 cm IVSd: 0.88 cm LVPWd: 0.70 cm LV avery. diameter/BSA (cm/m^2): 2.7 LV sys. diameter/BSA (cm/m^2): 1.7 LA A2 area: 18.7 cm2 RA long axis: 4.6 cm LA A4 area: 17.7 cm2 RA area: 13.4 cm2 LA length (vol): 4.7 cm RA vol: 33.0 ml LA vol: 59.9 ml RA : 19.4 ml/m2 LA vol index: 35.2 ml/m2 IVC diam: 1.5 cm RVD1 (basal): 3.2 cm TAPSE: 2.4 cm Doppler Measurements & Calculations Ao V2 max: 110.5 cm/sec LVOT Max Singh: 81.9 cm/sec Ao V2 mean: 87.4 cm/sec LV V1 max P.7 mmHg Ao max P.9 mmHg LV V1 VTI: 16.8 cm Ao mean P.2 mmHg PREMA(I,D): 1.8 cm2 Ao V2 VTI: 27.9 cm PREMA(V,D): 2.2 cm2 sev ratio: 0.60 PREMA indexed to BSA (cm^2/m^2): 1.1 MV E max singh: 64.3 cm/sec PA V2 max: 75.1 cm/sec MV A max singh: 65.7 cm/sec PA V2 mean: 54.9 cm/sec MV E/A: 0.98 PA mean P.3 mmHg Med Peak E' Singh: 9.4 cm/sec PA pr(Accel): 3.6 mmHg E/E' med: 6.8 Lat Peak E' Singh: 11.4 cm/sec E/E' lat: 5.6 E/e' average: 6.2 MV dec time: 0.13 sec SV(LVOT): 50.8 ml Reading Physician:05:58 PM
== END ==
PROVIDERS: PCP Student in an Organized Health Care Education/Training Program; Referring Provider Student in an Organized Health Care Education/Training Program; Visit Provider Student in an Organized Health Care Education/Training Program
DX: Z12.31 Encounter for screening mammogram for malignant neoplasm of breast; Z80.3 Family history of malignant neoplasm of breast
CPT/HCPCS: 77063; 77067; 93306

== ENCOUNTER → 2021-01-09 13:26 | Outpatient (CLI) | payer OTHER, SELFPAY ==
--- NOTE | 2021-01-09 13:27 | DI.RAD.S_ITS ---
PROCEDURE: XR ABDOMEN 1V INDICATIONS: Abdominal fullness TECHNIQUE: One view of the abdomen acquired. COMPARISON: None. FINDINGS: Surgical changes and devices: None. Bowel: Bowel gas pattern is normal. Moderate amount of stool noted throughout the colon. Anastomotic suture line projects over the expected rectosigmoid colon junction. Soft tissues: No suspicious abdominal calcifications. Visualized solid organ contours appear normal in size. Bones: No suspicious bony lesions. IMPRESSION: Moderate fecal loading throughout the colon. Dictated by: Cece Ford MD, PhD on 01/09/2021 at 14:30 Approved by: Cece Ford MD, PhD on 01/09/2021 at 14:30
[2021-01-09 14:19] LABS: Appearance Urine UA CLEAR; Bilirubin Urine UA NEGATIVE (NEGATIVE); Color Urine UA YELLOW; Glucose Urine UA NEGATIVE (Negative); Ketones Urine UA NEGATIVE (NEGATIVE); Leukocyte Esterase Urine UA 1+ (NEGATIVE); Nitrite Urine UA NEGATIVE (Negative); Occult Blood Urine UA NEGATIVE (Negative); Protein Urine UA NEGATIVE (Negative); Specific Gravity Urine UA 1.025 (1.000-1.035); Urobilinogen Urine UA 0.2 E.U./dL (0.2)
[2021-01-09 14:27] LABS: RBC Urine None Seen (0-5/HPF); Renal Epithelial Cells Urine 0-1/HPF (0-1/HPF); Squamous Epithelial Cell Urine 5-10 /HPF (0-5/HPF); Transitional Epi Cells Urine 1-5/HPF (0-5/HPF); WBC Urine 1-5/HPF (0-5/HPF)
[2021-01-09 14:28] LABS: Culture Indicated Urine Cult Not Indicated
[2021-01-09 15:20] LABS: Bacteria Urine None Seen
== END ==
PROVIDERS: PCP Student in an Organized Health Care Education/Training Program; Referring Provider Student in an Organized Health Care Education/Training Program; Visit Provider Student in an Organized Health Care Education/Training Program
DX: R19.8 Other specified symptoms and signs involving the digestive system and abdomen (principal); R39.15 Urgency of urination
CPT/HCPCS: 74018; 81001

== ENCOUNTER → 2021-03-27 13:31 | Outpatient (CLI) | payer OTHER, SELFPAY ==
[2021-03-27 14:11] LABS: COVID19 -Nasal RAPID Negative (Negative)
== END ==
PROVIDERS: PCP Student in an Organized Health Care Education/Training Program; Visit Provider Physician Assistant
DX: R51.9 Headache, unspecified (principal); R19.7 Diarrhea, unspecified
CPT/HCPCS: 87635

== ENCOUNTER → 2021-10-10 14:51 | Outpatient (CLI) | payer OTHER, SELFPAY ==
[2021-10-10 16:40] LABS: Add Manual Diff / Slide Review NO; Basophils Absolute Auto 100 /uL (0-100); Basophils Percent Auto 0.8 % (0-2); Eosinophils Absolute Auto 200 /uL (0-450); Hematocrit 38.8 % (36-46); Hemoglobin 13.5 g/dL (12.0-16.0); Lymphocytes Absolute Auto 2500 /uL (1100-4500); Lymphocytes Percent Auto 37.3 % (25-40); Mean Corpuscular HGB Conc 34.7 % (30-36); Mean Corpuscular Hemoglobin 32.9 PG (26-34); Mean Corpuscular Volume 94.7 fL (80-100); Monocytes Absolute Auto 500 /uL (0-900); Neutrophils Absolute Auto 3400 /uL (1500-7000); Neutrophils Percent Auto 50.9 % (50-75); Platelet Count 269 X10^3/uL (150-400); Red Cell Distribution Width 13.4 % (11.6-14.8); White Blood Cell Count 6.8 X10^3/uL (4.5-11.0)
[2021-10-10 16:59] LABS: Alanine Aminotransferase 23 IU/L (<35); Albumin 4.8 g/dL (3.5-5.0); Albumin Globulin Ratio 1.5 (1.0-2.8); Alkaline Phosphatase 48 U/L (38-126); Aspartate Aminotransferase 29 IU/L (14-36); BUN Creatinine Ratio 16.7 (6-22); Bilirubin Total 0.5 mg/dL (0.2-1.3); Blood Urea Nitrogen 13 mg/dL (7-17); Calcium 9.1 mg/dL (8.4-10.2); Carbon Dioxide 23 mmol/L (22-32); Chloride 108 mmol/L (98-107); Estimated Glomerular Filt Rate > 60 mL/min (>60); Globulin 3.2 g/dL (1.7-4.1); Glucose 89 mg/dL (80-110); HEMOLYSIS < 15 (0-50); Potassium 3.9 mmol/L (3.4-5.1); Sodium 141 mmol/L (137-145)
== END ==
PROVIDERS: PCP Student in an Organized Health Care Education/Training Program; Referring Provider Student in an Organized Health Care Education/Training Program; Visit Provider Student in an Organized Health Care Education/Training Program
DX: R10.31 Right lower quadrant pain (principal); R19.8 Other specified symptoms and signs involving the digestive system and abdomen
CPT/HCPCS: 36415; 80053; 85025

== ENCOUNTER → 2021-10-11 10:26 | Outpatient (CLI) | payer OTHER, SELFPAY ==
--- NOTE | 2021-10-11 10:27 | DI.CT.S_ITS ---
PROCEDURE: CT ABDOMEN PELVIS W CON INDICATIONS: RLQ pain; h/o abd malignancy TECHNIQUE: After the administration of intravenous contrast, axial sections acquired from the lung bases to the pubic symphysis. Coronal and sagittal reformats were performed. For radiation dose reduction, the following was used: automated exposure control, adjustment of mA and/or kV according to patient size. COMPARISON: None. FINDINGS: Image quality: Excellent. Lung bases: 6 mm right lateral lower lobe juxta fissural nodule. Otherwise clear lung bases. Heart: No significant findings. ABDOMEN: Liver: Mildly decreased hepatic attenuation. Gallbladder: Decompressed. Biliary ducts: Nondilated. Pancreas: Normal. Spleen: Normal size. Adrenal Glands: No nodules. Kidneys and Ureters: Symmetric enhancement. No nephrolithiasis or hydronephrosis. No hydroureter. Stomach and Bowel: Stomach and proximal small bowel are normal. There is a small bowel diverticulum or site of small bowel anastomosis in the right mid abdomen. There is a layering contrast fluid level. The distal loop demonstrates of a tight stricture with thickened wall, but proximally there are no dilated loops to suggest obstruction. There is an increased amount of solid stool throughout the colon. The cecum is particularly prominent, lying midline all on top of the urinary bladder. There is an anorectal anastomosis. Peritoneum: No abnormal intraperitoneal fluid. No free air. Ventral Wall: No hernias. Abdominal Nodes: No retroperitoneal or mesenteric adenopathy by size criteria. Vessels: Aorta and inferior vena cava are normal in size. PELVIS: Pelvic Organs: The uterus contains a posterior subserosal fibroid with coarse central calcification. There is a right adnexal cystic mass measuring roughly 4.9 x 3.5 cm, potentially related to the right ovary or uterus the left ovary likely contains a follicle measuring 1.0 cm. Bladder: Decompressed. Pelvic Nodes: No enlarged lymph nodes. Miscellaneous: No hernias are seen. Bones: Scattered degenerative disc and endplate change in the thoracolumbar spine. IMPRESSION: 1. 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 No evidence of acute bowel obstruction. 2. Increased colonic stool burden. 3. Mild hepatic steatosis. 4. Uterine fibroid and possible right adnexal cystic mass. Pelvic ultrasound recommended. Dictated by: Cinda Jacques M.D. on 10/11/2021 at 17:19 Approved by: Cinda Jacques M.D. on 10/11/2021 at 17:47
== END ==
PROVIDERS: PCP Student in an Organized Health Care Education/Training Program; Referring Provider Student in an Organized Health Care Education/Training Program; Visit Provider Student in an Organized Health Care Education/Training Program
DX: D25.2 Subserosal leiomyoma of uterus (principal); K76.0 Fatty (change of) liver, not elsewhere classified; N94.9 Unspecified condition associated with female genital organs and menstrual cycle; R19.8 Other specified symptoms and signs involving the digestive system and abdomen; R10.31 Right lower quadrant pain
CPT/HCPCS: 74177; Q9967

== ENCOUNTER → 2021-10-16 16:52 | Outpatient (CLI) | payer OTHER, SELFPAY ==
--- NOTE | 2021-10-16 16:54 | DI.US.S_ITS ---
PROCEDURE: US PELVIC COMPLETE INDICATIONS: Uterine fibroids, right adnexal mass TECHNIQUE: Real-time scanning was performed of the pelvic organs, with image documentation. Additional endovaginal scanning was necessary due to incomplete visualization of the adnexal and endometrial structures by transabdominal scanning. COMPARISON: [facility], US, PELVIC COMPLETE, 03/19/2016, 9:50. CT abdomen pelvis 10/11/2021. FINDINGS: Uterus: Uterus is anteverted and normal in size at 7.5 x 3.6 x 2.6 cm. The myometrium is homogeneous. The endometrium measures 2 mm combined thickness. -left posterior uterine body subserosal fibroid, 1.9 x 1.8 x 2.5 centimeters. Previously 4.7 x 3.5 x 4.7 centimeters on prior ultrasound. Partially calcified. -right anterior uterine body subserosal fibroid, 3.9 x 2.9 x 3.1 centimeters. Previously 3.7 x 2.2 x 4.5 centimeters. Ovaries: The right ovary measures 2.7 x 1.2 x 2.1 cm, with a calculated ovarian volume of 4 cc. The left ovary measures 2.1 x 1.7 x 1.5 cm, with a calculated ovarian volume of 3 cc. A simple appearing cyst is present in the left ovary measuring 1.4 x 1.1 x 1.0 centimeters, on prior ultrasound 2.1 x 1.6 x 1.7 cm. No adnexal masses are seen. Other: No pathologic free abdominal or pelvic fluid. IMPRESSION: 1. A subserosal fibroid at the right aspect of the uterine body is present as before measuring up to 3.9 centimeters, previously 4.5 centimeters. 2. A 2nd fibroid at the left aspect of the uterine body has also decreased in size since before. 3. No definite adnexal mass visualized. 4. A simple appearing cyst is present in the left ovary measuring up to 1.4 centimeters, decreased in size since the prior ultrasound. Per SRU guidelines, no imaging follow-up is necessary for this finding in an asymptomatic patient. We strive to produce accurate, complete, and clear reports of imaging services. To assist us in improving patient care, this report was composed using standard report templates and voice recognition software. Therefore, it may contain abnormal punctuation, insertions and/or omissions. Occasional wrong-word or sound-alike substitutions may occur. Though we review the report and make efforts to correct it, we do recommend that the report be read carefully in proper context to recognize any text inaccuracies. Dictated by: Baudilio Lomas M.D. on 10/17/2021 at 9:24 Approved by: Baudilio Lomas M.D. on 10/17/2021 at 9:47
== END ==
PROVIDERS: PCP Student in an Organized Health Care Education/Training Program; Referring Provider Student in an Organized Health Care Education/Training Program; Visit Provider Student in an Organized Health Care Education/Training Program
DX: D25.2 Subserosal leiomyoma of uterus (principal); N94.89 Other specified conditions associated with female genital organs and menstrual cycle; N83.202 Unspecified ovarian cyst, left side
CPT/HCPCS: 76830; 76856

== ENCOUNTER → 2021-10-23 15:13 | Outpatient (CLI) | payer OTHER, SELFPAY ==
[2021-10-25 04:45] LABS: Cancer Antigen 125 < 5.5 U/mL (0-35)
== END ==
PROVIDERS: PCP Student in an Organized Health Care Education/Training Program; Referring Provider Obstetrics & Gynecology; Visit Provider Obstetrics & Gynecology
DX: R19.00 Intra-abdominal and pelvic swelling, mass and lump, unspecified site (principal); N94.89 Other specified conditions associated with female genital organs and menstrual cycle; R10.31 Right lower quadrant pain; R19.8 Other specified symptoms and signs involving the digestive system and abdomen; Z85.048 Personal history of other malignant neoplasm of rectum, rectosigmoid junction, and anus
CPT/HCPCS: 36415; 86304

== ENCOUNTER → 2021-11-26 14:44 | Outpatient (CLI) | payer OTHER, SELFPAY ==
--- NOTE | 2021-11-26 15:00 | DIET.CONS ---
Dietary Consultation Note Assessment: 61y F attending RD visit for help with diet to support health and nutrition status before upcoming planned bowel resection (12/11/21). Pt has pmhx colorectal cancer c historical diverting loop ileostomy which was then reattached but now, 15y later causing some issues due to narrowing at anastamotic site. Pt reports stress over the past 2y caretaking for mother and brother with cancer dx. Pt states has not taken as careful care of self while caretaking others. Pt reports two weeks ago was on water diet x4d with nausea and what sounds like early bowel obstruction. Pt given advice to drink gatorade by PCP which she said helped her energy levels and electrolytes. Pt instructed to try BRAT diet but she doesn't like toast or rice and wanting more information for customized choices based on her current health status and health history. Pt currently very strict with diet: good quality bone broths, mozzarella balls, cottage cheese, apple sauce, not much else, clear liquids seem to go down well. Pt was nervous to try salmon so ended up throwing it away, nervous to try tomato juice, lemon, [place], unsure about continuing dairy, etc. Nutrition Diagnosis: nutrition related knowledge deficit r/t diet to support health with intestinal narrowing aeb pt fears eating variety foods, pt with planned bowel resection in 2w, pt desires information on safe foods to consume to support nutrition status prior to surgery. Interventions: 1. Educated pt on most important factor with intestinal narrowing is to eat slowly and chew food to liquid consistency or eat purees and to eat smaller volumes at one time ~1/2c. 2. Educated pt on safe foods food group by food group based on pts personal food preferences. Pt okay to eat dairy- yogurt, milk, cottage cheese, mozzarella, cream cheese. Pt okay to eat proteins- soft salmon (well chewed), soft eggs, dairy already mentioned, soft tofu (well chewed), collagen protein, nut butters thinned into sauces. Pt okay to eat fruits- melon (well chewed), skinless pear and apple, 3 strawberries, 6 blueberries, etc. Pt okay to eat vegetables (well chewed and small portions)- overcooked winter squash/potato/beet/carrot, spinach puree as hank, herb and vegetable blended sauces, baba ganoush, pesto, etc. 3. Educated pt on ingredients for homemade rehydration formulas: oj, salt, coconut water, sugar, tomato juice, miso, bone broth. As well as liquid IV and NUUN rehydration products. 4. Educated pt on appropriate hydration for body size, pt to drink 1.8L fluids daily (30kcal/kg). 5. Reviewed pts supplements for redundancy and in context of gel capsule risk to intestinal narrowing. Monitoring/Evaluations: f/u when pt inpatient upstairs, continued education when surgical results clear to direct nutrition intervention for healing and predatory animal exterminator maintenance. Electronically Signed by: Abigail Lay 11/26/21 15:00 Clinical Dietitian [address] [address]
== END ==
PROVIDERS: PCP Student in an Organized Health Care Education/Training Program; Referring Provider Student in an Organized Health Care Education/Training Program; Visit Provider Student in an Organized Health Care Education/Training Program
DX: K91.89 Other postprocedural complications and disorders of digestive system (principal); Z85.038 Personal history of other malignant neoplasm of large intestine; Z71.3 Dietary counseling and surveillance
CPT/HCPCS: 97802

== ENCOUNTER → 2021-12-10 09:01 | Outpatient (CLI) | payer OTHER, SELFPAY ==
[2021-12-10 11:40] LABS: COVID19 -Nasal RAPID Negative (Negative)
== END ==
PROVIDERS: PCP Student in an Organized Health Care Education/Training Program; Visit Provider Surgery
DX: Z20.822 Contact with and (suspected) exposure to COVID-19 (principal); Z01.812 Encounter for preprocedural laboratory examination
CPT/HCPCS: 87635; C9803

== ENCOUNTER 2021-12-11 06:06 | Inpatient (IN) | payer OTHER, SELFPAY ==
[2021-12-04 13:34] VITALS: BMI 21.6
[2021-12-11] VITALS (13 sets, daily range): BP systolic 118–157; BP diastolic 67–82; PULSE 60–84; RESP 11–21; TEMP 35.6–36.6; O2SAT 92–100; BMI 21.6
--- NOTE | 2021-12-11 | PATH_ITS ---
[facility] Accession Number: [id number] . 01 Material submitted: . small bowel - SMALL BOWEL . 01 Diagnosis: Small Bowel, Resection: Segment of small bowel with staple line, consistent with remote anastomosis. Negative for active inflammation, granulomas, dysplasia, or malignancy. MRV 12/13/2021 1655 Local . 01 Electronically signed: . Wero Ace MD, PhD, Pathologist NPI- [id number] . 01 Gross description: . Received in formalin labeled with the patient's name and small bowel consists of a fragment of small bowel forming a possible blind pouch with one staple line and a black suture attached to the staple line. The specimen measures 5.2 cm in length and 4.3 cm in diameter. Removing the single staple line reveals a loop of bowel with two separate margins. One margin is inked black while the other margin is inked blue. Opening the specimen reveals a line of well-healed oralia running through the center of the loop of bowel. The lumen appears to be minimally patent and is filled with a small amount of thick green material. The mucosa is monet and velvety with normal appearing folds and no lesions are identified. The freed average 0.3 cm thick. Boiling Tub Operator sections are submitted as follows: . A1: Blue margin en face. A2: Black margin en face. A3: Boiling Tub Operator sections to include area adjacent to well-healed staple line. ([id number]) /MRV 12/12/2021 1457 Local . 01 Pathologist provided ICD-10: K56.699 . 01 CPT . 735996 Specimen Comment: A courtesy copy of this report has been sent to [phone] Performed at: [address] [place] [address] [facility], [place], [place] [id number] MD Efrain Lunsford MD Phone: [phone]
[2021-12-11] MEDS: ACETAMINOPHEN 325 MG TABLET 650 MG PO ×2 (07:03→21:24)
[2021-12-11] MEDS: LACTATED RINGERS 1,000 ML 42 ML IV ×2 (07:03→09:36)
--- NOTE | 2021-12-11 07:45 | PM.HP.1 ---
History of Present Illness History of Present Illness Date Patient Seen: 12/11/21 Time Patient Seen: 07:45 Chief complaint: Lap Assist Colectomy 12/11 Narrative: Chayo is here for her laparoscopic assisted small bowel resection. See office note for details. She is could had additional episodes of nausea and bloating since our office visit. Patient History Medical History (Updated 12/04/21 @ 14:06 by May Mckeon RN) Allergy Arthritis Chicken pox (~1965) Colon polyps (2006) Colorectal cancer (2006) Hayfever (1979) Hemorrhoids (2015) Hepatitis C (1981) Hepatitis non A non B Hypoglycemia Seafood allergy Uterine fibroid Surgical History (Updated 12/04/21 @ 13:47 by May Mckeon RN) Anesthesia History of Achilles tendon repair (2014) History of colon surgery (09/2005) History of colonoscopy (05/2015) History of repair of anterior cruciate ligament of right knee (07/2005) Status post colectomy (2006) Family & Social History Family History (Updated 10/08/17 @ 12:36 by Berenice Salmeron) Father Lung cancer Skin cancer Rheumatoid arthritis Cancer Bleeding ulcer Grandmother Breast cancer Mother Age: 87 Coronary artery disease Breast cancer Hx of CABG Grandmother Breast cancer Brother Severe back pain Social History: household members none Prior Living Arrangements House Safety & Behavioral: Feels Safe in Current Yes Environment Been Physically Hurt or No Threatened By a Person Suicidal Ideation Description None Suicide Plan Description No Plan Tobacco & Substance use: Tobacco type cigarettes Smoking Status Former smoker alcohol intake current alcohol intake frequency 0-2 drinks per day Substance Use Type does not use Meds Home Medications and Allergies Home Medications Medication Instructions Recorded Confirmed Type aspirin 81 mg capsule 81 mg PO QWEEK ##0 01/17/11 12/11/21 History multivitamin 1 tab PO QWEEK ##0 06/07/11 12/11/21 History calcium citrate 250 mg 800 mg PO SEEINSTR ##0 03/11/12 12/11/21 History calcium-vitamin D3 5 mcg (200 unit) tablet (Citracal Regular) cholecalciferol (vitamin D3) 125 5,000 unit PO QWEEK 12/03/17 12/11/21 History mcg (5,000 unit) capsule lactobacillus combination no.9 4 4,000 mmu cells PO DAILY 08/22/18 08/30/22 History billion cell capsule (Adult 50 Plus Probiotic) Allergies Allergy/AdvReac Type Severity Reaction Status Date / Time codeine [CODEINE] AdvReac Mild Gastrointestinal Verified 12/04/21 14:04 Upset-as a child Exam Vital Signs (past 8 hours): - 12/11/21 07:17 Temperature 97.4 F L Pulse Rate 69 Respiratory Rate 16 Blood Pressure 157/80 H Pulse Oximetry 100 Oxygen Delivery Method Room Air Oxygen Delivery Method Room Air Narrative Exam Narrative: Soft, nontender Assessment & Plan Assessment and plan (1) Anastomotic stricture of colorectal region: Status: Acute Plan Plan for laparoscopic assisted small-bowel resection. Discussed the risks as well as the possibility of needing remove a small portion of the colon. Time Spent With Patient Critical Care time: I spent a total of [] minutes of critical care time on this patient's care today; this time is exclusive of procedural time.
[2021-12-11] MEDS: PIPERACILLIN/TAZO 3.375 GM in SODIUM CHLORIDE 0.9% 100 ML IV (08:11)
--- NOTE | 2021-12-11 08:28 | SUR.OPER ---
Supine on padded OR bed ( with pink Pad), head on pillow, left arm padded and tucked at side,right arm padded and secured on arm board at less than 90 degrees.legs uncrossed, safety belt at thigh, tape over blanket over lower legs .
[2021-12-11] MEDS: BUPIVACAINE 0.5% W/ EPI (PF) 30 ML VIAL INJ (08:37)
--- NOTE | 2021-12-11 10:12 | P.OP_ITS ---
Operative Date/Time/Diagnoses Date of procedure: 12/11/21 Time of procedure: 10:12 Pre-op diagnosis: Anastomotic stricture Post-op diagnosis: other (Patulous anastomosis) Procedure & Clinicians Procedure: Laparoscopic small-bowel resection Same procedure as scheduled: Yes Surgeon: Jeremy Leon Spanish Moss Picker: Choco Fonseca Anesthesia Type: General Operative Notes Procedure in detail: The patient was given Zosyn. The patient was brought to the operating room, placed on the table in the supine position with the left arm tucked and general endotracheal anesthesia was induced. A Antony catheter was placed. The abdomen was prepped and draped in the usual fashion and a time-out was performed. We made a 1 cm supraumbilical midline incision to avoid the old scars. We dissected down to the anterior sheath and scored the anterior sheath with cautery. We then grasped the fascia with a Soto clamp to elevate the abdominal wall and pierced the peritoneum with a Peon clamp. A Maico port was placed and the abdomen was insufflated to 15 mmHg. There were some omental adhesions to the low midline scar just inferior to the port. We were able the visualized around the adhesions and place a 5 mm port in the suprapubic position and another 5 mm port in the left lower quadrant under direct visualization. We then took down the omental adhesions with the LigaSure. We then ran the small bowel from the terminal ileum to the ligament Treitz. The only abnormality was the ileal anastomosis which did not appear strictured but was rather patulous and capacious. It was seemed that the patient's symptoms were related to the reservoir effect from this very floppy and dilated anastomosis. The anastomosis was roughly 20 cm from the terminal ileum. We then extended the supra umbilical incision to a roughly 6 mm periumbilical incision. The small Andreas retractor was placed. We exteriorized the small bowel anastomosis and performed a resection of the old anastomosis with a new [id number] functional end-to-end small bowel anastomosis. We used 2 firings of the 75 mm blue load linear cutting stapler. We then imbricated the staple line with multiple interrupted 3-0 silk sutures. There was a very small mesenteric defect to close with the 2- 0 Vicryl. The anastomosis was widely patent and well perfused. The anastomosis was dropped back into the abdomen and we changed gloves and placed clean tells around the field. We then injected additional local anesthetic into the pre and post fascial planes and closed the fascial defect with a running 0 PDS suture. We then reinsufflated the abdomen and reexamined the abdomen laparoscopically. The anastomosis was lying in the right lower quadrant. We placed omentum over the anastomosis and the rest of the small bowel. We then removed the supraumbilical 5 mm port under direct vision. We then removed the left lower quadrant port with the camera still in the abdomen and saw no bright red blood dripping from the camera. The camera was then removed completely. The skin incisions were closed with 4-0 Monocryl and covered with sterile dressings. EBL: 30 mL Specimen: Old small-bowel anastomosis Post-operative Condition: stable Disposition: PACU
[2021-12-11] MEDS: fentaNYL 100 MCG/2 ML INJ IV (10:15)
[2021-12-11] MEDS: ONDANSETRON 4 MG/2 ML INJ IV (10:15)
[2021-12-11] MEDS: HYDROMORPHONE 2 MG INJ IV (10:15)
[2021-12-11] MEDS: PIPERACILLIN/TAZO 4.5 GM in SODIUM CHLORIDE 0.9% 100 ML IV ×2 (16:35→21:48)
[2021-12-11] MEDS: IBUPROFEN 600 MG TABLET PO (21:23)
[2021-12-12] MEDS: HYDROMORPHONE 0.5 MG INJ IV ×3 (01:43→22:31)
[2021-12-12 03:50] VITALS: BP 131/84; PULSE 67; RESP 18; TEMP 36.1; O2SAT 94
[2021-12-12 06:09] LABS: Add Manual Diff / Slide Review NO; Basophils Absolute Auto 0 /uL (0-100); Basophils Percent Auto 0.2 % (0-2); Eosinophils Absolute Auto 0 /uL (0-450); Hematocrit 34.1 % (36-46); Hemoglobin 11.9 g/dL (12.0-16.0); Lymphocytes Absolute Auto 1500 /uL (1100-4500); Lymphocytes Percent Auto 18.8 % (25-40); Mean Corpuscular HGB Conc 34.9 % (30-36); Mean Corpuscular Hemoglobin 33.5 PG (26-34); Mean Corpuscular Volume 95.9 fL (80-100); Monocytes Absolute Auto 800 /uL (0-900); Monocytes Percent Auto 9.3 % (3-14); Neutrophils Absolute Auto 5800 /uL (1500-7000); Neutrophils Percent Auto 71.7 % (50-75); Platelet Count 222 X10^3/uL (150-400); Red Blood Cell Count 3.55 X10^6/uL (4.0-5.2); Red Cell Distribution Width 13.5 % (11.6-14.8)
[2021-12-12] MEDS: ACETAMINOPHEN 325 MG TABLET 650 MG PO ×2 (06:26→13:03)
[2021-12-12 06:27] LABS: BUN Creatinine Ratio 11.4 (6-22); Blood Urea Nitrogen 9 mg/dL (7-17); Calcium 8.5 mg/dL (8.4-10.2); Carbon Dioxide 28 mmol/L (22-32); Chloride 100 mmol/L (98-107); Estimated Glomerular Filt Rate > 60 mL/min (>60); Glucose 150 mg/dL (80-110); HEMOLYSIS < 15 (0-50); Potassium 3.8 mmol/L (3.4-5.1); Sodium 135 mmol/L (137-145)
[2021-12-12] MEDS: PIPERACILLIN/TAZO 4.5 GM in SODIUM CHLORIDE 0.9% 100 ML IV ×3 (06:52→22:34)
[2021-12-12 08:00] VITALS: BP 115/57; PULSE 66; RESP 17; TEMP 36.4; O2SAT 97
[2021-12-12] MEDS: IBUPROFEN 600 MG TABLET PO (11:50)
--- NOTE | 2021-12-12 13:39 | CM.DANOTE ---
Patient is a 61 yo female who was admitted on 12/11/21 for Lap Don. Pt has ANNE for insurance and her PCP is Dr. Indra [place]. EMR was reviewed. Per Surgeon, pt tolerated her procedure and slowly advancing her diet and still on clears. Per Fast Food Worker, pt has been established with Nutrition in the outpt setting since pt has such a restrictive diet from her prior surgery. SW met bedside with pt and explained role and pt confirms that she lives in [place] and was somewhat vague and brief in her answers as she states she was frustrated from overnight as she got behind in my pain control and had a miserable night and don't think I was given pain medication enough. SW updated RN who will discuss further with pt as she was rating her pain as 3/10. Pt confirms she is independent at baseline and drives and has Sig Other and friend who can transport her home at d/c and assist if needed. Pt does not anticipate any needs at d/c and is hopeful for home in the next 1-2 days. Plan: SW to follow for pt progress with pain management and advancing diet towards confirming safe d/c home with assist from local Sig Other/friends. FATOUMATA Nazario Discharge Planning/Care Management CM Discharge Assessment Start: 12/12/21 13:34 Freq: Status: Active Protocol: Document 12/12/21 13:34 BF (Rec: 12/12/21 13:39 BF [id number]) Discharge Planning Assessment Assigned Groundwater Programs Director FATOUMATA Virgen DPOA/Assigned Designee Name informally sig other Advance Directives? Yes Advance Directives on File No History Provided By Patient,Medical Record Has Patient been admitted in last 30 No days? Prior Living Arrangements House Household Members none Type of transporation used prior to Drives own vehicle admit Independent with ADL's Yes Is patient alert and oriented? Yes Caregiver for Another No Comment Established with Abigail in outpt Nutrition Barriers to Discharge No Discharge Plan Home Transportation Arrangement Pt states she has transport from friend at d/c Referrals Initiated None needed Additional Comment Pending progress Whiteboard Updated in Patient Room with Yes name and ext. # of Groundwater Programs Director Review Status In Process Please Provide Date Initial DC 12/12/21 Assessment Was Performed Next Review Type Continued Stay Review Pre-Anesthesia Assessment Start: 12/04/21 13:34 Freq: Status: Active Protocol: Document 12/04/21 13:34 CAB (Rec: 12/04/21 14:21 [facility] [id number]) Pre-Anesthesia Assessment Patient Information Reviewed Via Phone Assessment Assessment Completed With Patient Comment COVID screen @ 12/10/21 Primary Care Provider Indra [place] Seen Specialist in Last 12 Months Yes Specialist Seen General surgeon,Oncologist Primary Language Greek Marketing Ambassador Required No Height 165.1 cm Weight 58.967 kg Body Mass Index (BMI) 21.6 Hearing Ability Normal Visual Assist Glasses Dentition Type Teeth, Natural Present Barriers to Learning None Hx Anesthesia Reactions No Hx Family Anesthesia Reaction No Hx Malignant Hyperthermia No Hx Blood Transfusions No Anesthesia Review Requested No alcohol intake current alcohol intake frequency 0-2 drinks per day Smoking Status Former smoker Tobacco type cigarettes how long ago did patient quit smoking Quit 1999 Substance Use Type does not use Pain Present Pain Reported Comment Right lower side Musculoskeletal Symptoms Joint Pain,Neck Pain History of Falling (Recent or History of No ) Patient is completely paralyzed or No completely immobile Mental Status Oriented to own ability Is patient on oxygen? No Does patient have MÉNDEZ/SOB No Hx Sleep Apnea No Currently Taking a Beta Farzad No Hx Chest Pain No Hx SOB No Hx Syncope or Dizziness No Anti-Coagulant Therapy No Has a Scale Manager No Cardiac Testing No Hx Pacemaker/ICD No Pacemaker Rep Required? No Diet Type At Home Regular dysphagia No Gastrointestinal Symptoms Abdominal Pain,Bloating,Nausea Comment current bowel obstruction Bladder Pattern Urgency Urinary Catheter Present No Hx Urinary Self Catheterization No Diabetes No Patient No Lactating No Hx Drug Resistant Organism Yes Presence of External or Internal Medical Yes: Right knee Devices Have you had any close contact with No someone diagnosed with COVID-19? Received a COVID vaccine? Yes Received all doses? Yes Marital Status Lives With none Prior Living Arrangements House Number of Floors (Floors) One Floor Support System Significant Other Does the Patient Have Assistance After Yes: S.O. will stay w/pt to Surgery assist with care Patient Discharge Plan Description Return Home Comment Pt advised 3-5 day length of stay per surgeon Feels Safe in Current Environment Yes Been Physically Hurt or Threatened By a No Person in Current Environment Do you have thoughts of harming yourself None or others? Are you currently considering suicide? No Do you have a plan to hurt yourself or No Plan others? Do You Have Any Spiritual Beliefs That No May Affect Your HC Choices? Do You Have Any Cultural Practices That No May Affect Your HC Choices? Comment Chirstian Who Can We Speak to About Patient's Care Family, friends Identifying Code for Release of Patient Declines to issue Information Health Care Proxy/Next of Kin Gerardo (brother) Health Care Proxy Emergency Contact Name Too Michel (S.O.) Emergency Contact Advance Directives? No Power of Front Office Spec No PAC Instructions Durable medical equipment, Medications to take/avoid,No ETOH/petroleum product on skin DOS,NPO,Pre-surgical wash, Sturdy shoes/comfortable clothes,Do not bring valuables and remove jewelry
[2021-12-12 15:50] VITALS: BP 119/48; PULSE 71; RESP 17; TEMP 36; O2SAT 96
--- NOTE | 2021-12-12 17:47 | P.PN_ITS ---
Subjective Subjective Date Patient Seen: 12/12/21 Interval history: She feels and hears some rumblings her abdomen but no passing gas yet. Tolerating some liquids. Exam Vital Signs (past 8 hours): - 12/12/21 15:50 Temperature 96.8 F L Pulse Rate 71 Respiratory Rate 17 Blood Pressure 119/48 L Pulse Oximetry 96 Oxygen Flow Rate 0 Oxygen Delivery Method Room Air Oxygen Flow Rate 0 Narrative Exam Narrative: Abdomen soft, nontender Objective Labs Result Diagrams: 12/12/21 05:48 12/12/21 05:48 Labs: Laboratory Results - last 24 hr 12/12/21 12/12/21 05:48 05:48 WBC 8.0 RBC 3.55 L Hgb 11.9 L Hct 34.1 L MCV 95.9 MCH 33.5 MCHC 34.9 RDW 13.5 Plt Count 222 Neut % (Auto) 71.7 Lymph % (Auto) 18.8 L [place] % (Auto) 9.3 Eos % (Auto) 0.0 L Baso % (Auto) 0.2 Neut # (Auto) 5800 Lymph # (Auto) 1500 [place] # (Auto) 800 Eos # (Auto) 0 Baso # (Auto) 0 Sodium 135 L Potassium 3.8 Chloride 100 Carbon Dioxide 28 BUN 9 Creatinine 0.79 Estimated GFR > 60 BUN/Creatinine Ratio 11.4 Glucose 150 H Calcium 8.5 PFSH Medical History (Updated 12/12/21 @ 17:48 by Jeremy Leon MD) Allergy Arthritis Chicken pox (~1965) Colon polyps (2006) Colorectal cancer (2006) Hayfever (1979) Hemorrhoids (2015) Hepatitis C (1981) Hepatitis non A non B Hypoglycemia Seafood allergy Uterine fibroid Surgical History (Updated 12/04/21 @ 13:47 by May Mckeon RN) Anesthesia History of Achilles tendon repair (2014) History of colon surgery (09/2005) History of colonoscopy (05/2015) History of repair of anterior cruciate ligament of right knee (07/2005) Status post colectomy (2006) Family History (Updated 10/08/17 @ 12:36 by Berenice Salmeron) Father Lung cancer Skin cancer Rheumatoid arthritis Cancer Bleeding ulcer Grandmother Breast cancer Mother Age: 87 Coronary artery disease Breast cancer Hx of CABG Grandmother Breast cancer Brother Severe back pain Social History household members: none Smoking Status: Former smoker alcohol intake: current Assessment & Plan Assessment and plan (1) Postoperative examination: Status: Acute Plan Up to chair Ambulate Lovenox Await flatus before advancing diet Time Spent With Patient Critical Care time: I spent a total of [] minutes of critical care time on this patient's care today; this time is exclusive of procedural time.
[2021-12-12 20:45] VITALS: BP 126/76; PULSE 64; RESP 12; TEMP 36.3; O2SAT 97
[2021-12-13] VITALS (7 sets, daily range): BP systolic 106–143; BP diastolic 59–86; PULSE 65–74; RESP 12–19; TEMP 35.7–36.1; O2SAT 95–99; BMI 21.6
[2021-12-13] MEDS: ACETAMINOPHEN 325 MG TABLET 650 MG PO ×3 (05:55→21:17)
--- NOTE | 2021-12-13 06:02 | PC.NURSE ---
Pt states she thinks she is hypoglycemic and requested BG check. BG = 102.
[2021-12-13] MEDS: PIPERACILLIN/TAZO 4.5 GM in SODIUM CHLORIDE 0.9% 100 ML IV (06:24)
[2021-12-13] MEDS: ENOXAPARIN 40 MG/0.4 ML SYRINGE SUBCUT (09:38)
--- NOTE | 2021-12-13 11:10 | P.PN_ITS ---
Subjective Subjective Date Patient Seen: 12/13/21 Time Patient Seen: 11:10 Interval history: She has passed some gas today. She is able to ambulate short distances but she continues to have abdominal pain that limits her ability to walk Exam Vital Signs (past 8 hours): - 12/13/21 06:00 12/13/21 08:00 Temperature 96.6 F L 96.7 F L Pulse Rate 66 74 Respiratory Rate 12 16 Blood Pressure 119/76 134/65 Pulse Oximetry 96 97 Oxygen Flow Rate 0 0 Oxygen Delivery Method Room Air Oxygen Flow Rate 0 Const General: No acute distress Resp Effort & Inspection: normal respiratory effort Objective Labs Result Diagrams: 12/12/21 05:48 12/12/21 05:48 [facility] Medical History (Updated 12/12/21 @ 17:48 by Jeremy Leon MD) Allergy Arthritis Chicken pox (~1964) Colon polyps (2006) Colorectal cancer (2006) Hayfever (1979) Hemorrhoids (2015) Hepatitis C (1981) Hepatitis non A non B Hypoglycemia Seafood allergy Uterine fibroid Surgical History (Updated 12/04/21 @ 13:47 by May Mckeon RN) Anesthesia History of Achilles tendon repair (2014) History of colon surgery (09/2005) History of colonoscopy (05/2015) History of repair of anterior cruciate ligament of right knee (07/2005) Status post colectomy (2006) Family History (Updated 10/08/17 @ 12:36 by Berenice Salmeron) Father Lung cancer Skin cancer Rheumatoid arthritis Cancer Bleeding ulcer Grandmother Breast cancer Mother Age: 87 Coronary artery disease Breast cancer Hx of CABG Grandmother Breast cancer Brother Severe back pain Social History household members: none Smoking Status: Former smoker alcohol intake: current Assessment & Plan Assessment and plan (1) Postoperative examination: Status: Acute Plan Advance to full liquid diet today Time Spent With Patient Critical Care time: I spent a total of [] minutes of critical care time on this patient's care today; this time is exclusive of procedural time.
[2021-12-13] MEDS: IBUPROFEN 600 MG TABLET PO (18:45)
--- NOTE | 2021-12-13 18:47 | PC.NURSE ---
pt ambulated in hallways then she had a small BM, loose. she tolerated her full liquid. still feeling bloated after eating.
[2021-12-14 03:00] VITALS: BP 126/79; PULSE 71; RESP 17; TEMP 36.1; O2SAT 96
[2021-12-14] MEDS: IBUPROFEN 600 MG TABLET PO (03:25)
[2021-12-14] MEDS: ACETAMINOPHEN 325 MG TABLET 650 MG PO ×2 (05:41→15:21)
[2021-12-14 07:45] VITALS: BP 132/84; PULSE 68; RESP 16; TEMP 35.7; O2SAT 98
--- NOTE | 2021-12-14 10:12 | PM.PNPO.1 ---
Exam Vital Signs (past 8 hours): - 12/14/21 03:00 12/14/21 07:45 Temperature 96.9 F L 96.3 F L Pulse Rate 71 68 Respiratory Rate 17 16 Blood Pressure 126/79 132/84 Pulse Oximetry 96 98 Oxygen Flow Rate 0 0 Oxygen Delivery Method Room Air Oxygen Flow Rate 0 Objective Labs Result Diagrams: 12/12/21 05:48 12/12/21 05:48 [facility] Medical History (Updated 12/12/21 @ 17:48 by Jeremy Leon MD) Allergy Arthritis Chicken pox (~1964) Colon polyps (2006) Colorectal cancer (2006) Hayfever (1979) Hemorrhoids (2015) Hepatitis C (1981) Hepatitis non A non B Hypoglycemia Seafood allergy Uterine fibroid Surgical History (Updated 12/04/21 @ 13:47 by May Mckeon RN) Anesthesia History of Achilles tendon repair (2014) History of colon surgery (09/2005) History of colonoscopy (05/2015) History of repair of anterior cruciate ligament of right knee (07/2005) Status post colectomy (2006) Family History (Updated 10/08/17 @ 12:36 by Berenice Salmeron) Father Lung cancer Skin cancer Rheumatoid arthritis Cancer Bleeding ulcer Grandmother Breast cancer Mother Age: 87 Coronary artery disease Breast cancer Hx of CABG Grandmother Breast cancer Brother Severe back pain Social History household members: none Smoking Status: Former smoker alcohol intake: current Assessment & Plan Post-op Postoperative Procedures: Procedures Operation Date: 12/11/21 07:45 Actual Procedure Side Surgeon p Laparoscopically Assisted Small Bowel Resection with anastamosis Jeremy Leon MD
[2021-12-14] MEDS: ENOXAPARIN 40 MG/0.4 ML SYRINGE SUBCUT (11:17)
[2021-12-14 12:45] VITALS: BP 148/78; PULSE 63; RESP 18; TEMP 35.8; O2SAT 100
--- NOTE | 2021-12-14 14:11 | P.DS_ITS ---
History of Present Illness History of Present Illness Date Patient Seen: 12/14/21 Time Patient Seen: 14:11 Chief complaint: Lap Assist Colectomy 12/11 Narrative: 61 year old woman with a small bowel anastamotic stricture admitted for elective small bowel resection. Discharge Providers Provider Date of admission: 12/11/21 06:06 Discharge Date: 12/14/21 Primary care physician: Indra Montana MD Discharge provider: Ritesh Chatterjee MD Summary Hospital Course Discharge Diagnosis: Anastomotic stricture Hospital Course: Patient was taken to the operating 12/11/2021 and underwent a exploratory la parotomy with small-bowel resection of an anastomotic stricture. She did well postoperatively. Diet was advanced she had return of bowel function her pain was well controlled with oral medication. At discharge she is tolerating a regular diet and ambulatory Exam Vital Signs (past 8 hours): - 12/14/21 07:45 12/14/21 07:30 12/14/21 12:45 Temperature 96.3 F L 96.4 F L Pulse Rate 68 63 Respiratory Rate 16 18 Blood Pressure 132/84 148/78 H Pulse Oximetry 98 100 Oxygen Delivery Method Room Air Oxygen Flow Rate 0 0 Oxygen Delivery Method Room Air Oxygen Flow Rate 0 Narrative Exam Narrative: Gen-Adult woman alert and oriented Chest-Non labored resp Abdomen-Soft appropriately tender to palpation. Incision CDi with steri strips. Objective Labs Result Diagrams: 12/12/21 05:48 12/12/21 05:48 [facility] Medical History (Updated 12/12/21 @ 17:48 by Jeremy Leon MD) Allergy Arthritis Chicken pox (~1965) Colon polyps (2006) Colorectal cancer (2006) Hayfever (1979) Hemorrhoids (2015) Hepatitis C (1981) Hepatitis non A non B Hypoglycemia Seafood allergy Uterine fibroid Surgical History (Updated 12/04/21 @ 13:47 by May Mckeon RN) Anesthesia History of Achilles tendon repair (2014) History of colon surgery (09/2005) History of colonoscopy (05/2015) History of repair of anterior cruciate ligament of right knee (07/2005) Status post colectomy (2006) Family History (Updated 10/08/17 @ 12:36 by Berenice Salmeron) Father Lung cancer Skin cancer Rheumatoid arthritis Cancer Bleeding ulcer Grandmother Breast cancer Mother Age: 87 Coronary artery disease Breast cancer Hx of CABG Grandmother Breast cancer Brother Severe back pain Social History household members: none Smoking Status: Former smoker alcohol intake: current Discharge Plan Discharge Plan Patient Disposition: Home Provider Discharge Comment: No lifting greater than 20 lb for 2 weeks. Okay to remove the outer dressing and shower. Leave the Steri-Strips on until they start to peel off in 1-2 weeks. Discharge orders & Medications Prescriptions: New hydrocodone-acetaminophen 5-325 mg tablet 1 tab PO Q8H PRN (Reason: pain) Qty: 7 0RF Continued aspirin 81 mg Capsule 81 mg PO QWEEK Qty: 0 multivitamin Tablet 1 tab PO QWEEK Qty: 0 calcium citrate-vitamin D3 [Citracal Regular] 250 MG/200 IU tablet 800 mg PO SEEINSTR Qty: 0 Rx Instructions: Pt states rarely lactobacillus combination no.9 [Adult 50 Plus Probiotic] 4 billion cell capsule 4,000 mmu cells PO DAILY cholecalciferol (vitamin D3) 5,000 unit capsule 5,000 unit PO QWEEK Follow up/Referrals: Indra Montana MD [Primary Care Provider] - Jeremy Leon MD [Physician] - 2 Weeks Diet/Activity/Treatments Diet: Regular Skin/Wound/Dressing Care Report to your healthcare provider any signs of infection, such as:: chills, fever, increased pain, unusual drainage and unusual redness Visit Report/Discharge Packet Instructions: Low-Fiber/Low-Residue Diet, DI for Laparoscopy, DI for Small Bowel Resection, DI for Taking Pain Medication Discharge Data Primary Care Provider: Indra Montana
--- NOTE | 2021-12-14 18:26 | PC.NURSE ---
Discharge: Feels ready to go home. Seen by MD and given instructions. Dressing removed and wound open to air now. MD gave wound care instructions. pt has been voiding w/out diff. Diet increased to general and diet taty w/out problems. minimal use of meds for pain, she didn't want them. Recieved d/c packet and same reviewed. Questions answered. [facility]. Pt d/c home via auto w/spouse.
== END 2021-12-14 15:45 | disposition home or self-care (01) | DRG 349 ==
PROVIDERS: Admitting Provider Surgery; PCP Student in an Organized Health Care Education/Training Program; Referring Provider Surgery; Visit Provider Surgery
PROC: 0DTE0ZZ Resection of Large Intestine, Open Approach (ICD-10-PCS; principal; 2021-12-11 07:45)
DX: K91.89 Other postprocedural complications and disorders of digestive system (principal); K59.89 Other specified functional intestinal disorders; Z87.891 Personal history of nicotine dependence; Z20.822 Contact with and (suspected) exposure to COVID-19
CPT/HCPCS: 36415; 44204; 80048; 85025; J0330; J1100; J1170; J1650; J2250; J2274; J2405; J2543; J2704; J3010

== ENCOUNTER → 2022-02-13 10:25 | Outpatient (CLI) | payer OTHER, SELFPAY ==
[2021-12-13 15:20] VITALS: BMI 21.6
--- NOTE | 2022-02-13 10:29 | DIET.OUTPTC ---
Dietary Outpatient Consultation Note Consultation Date: 02/13/[address] 61[address] f/u after small bowel resection for help with continued bloating and tightness in abdomen. 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 Prior to surgery, pt on limited diet due to bloating and constipation thought to be a narrowing of anastamosis from prior surgery. Though pt cleared for normal diet, pts current diet remains extremely limited: yogurt, soft cheeses, tomato, basil, pasta, some cooked veggies or purees. Pt has tried smoked salmon and liver davis. Pt is previous restaurant joint supervisor and desires liberal diet but has ongoing sx and bloating/tightness within an hour of eating. Pt currently taking probiotic daily. Pt scheduled for stool sample study but didn't feel she got enough education on how to provide sample so has cup sitting in her home. Interventions: 1. Discussed following low FODMAP approved foods to reintroduce more variety in diet focusing on 1/4c serving size of each new food to test for tolerance. 2. Encouraged pt to f/u with lab for more clear directions on ordered stool test. 3. Pt would benefit from Small Intestine Bacterial Overgrowth (SIBO) breath test as pt continues to have limited diet and daily bloat which affects her ADLs. Pt with several risk factors for SIBO including: hx pouch-like small intestine, hx and continued daily bloating and constipation, bloating which starts 1h after ingestion of meal. 4. Recc pt stop probiotic due to bloating. Electronically Signed by: Abigail Lay 02/13/22 10:29 Clinical Dietitian [address] [address]
== END ==
PROVIDERS: PCP Student in an Organized Health Care Education/Training Program; Referring Provider Student in an Organized Health Care Education/Training Program; Visit Provider Student in an Organized Health Care Education/Training Program
DX: R14.0 Abdominal distension (gaseous) (principal); Z98.0 Intestinal bypass and anastomosis status; Z71.3 Dietary counseling and surveillance
CPT/HCPCS: 97802

== ENCOUNTER → 2022-02-19 15:15 | Outpatient (CLI) | payer OTHER, SELFPAY ==
[2021-12-13 15:20] VITALS: BMI 21.6
--- NOTE | 2022-02-19 15:16 | DI.MG.S_ITS ---
BILATERAL DIGITAL SCREENING MAMMOGRAM 3D/2D WITH CAD: 02/19/2022 CLINICAL: Routine screening. Family history of breast cancer. Comparison is made to exams dated: 07/10/2020 mammogram, 04/24/2019 mammogram, and 03/04/2017 mammogram - [facility]. Both breasts are heterogeneously dense, which may obscure small masses (category c / 51-75% glandular tissue). Current study was also evaluated with a Computer Aided Detection (CAD) system. No significant masses, calcifications, or other findings are seen in either breast. There has been no significant interval change. IMPRESSION: NEGATIVE There is no mammographic evidence of malignancy. A 1 year screening mammogram is recommended. Based on Tyrer-Cuzick model (a risk assessment model), the patient's lifetime risk is 21.7% and her 10 year risk is 9.4%. If a patient has an elevated risk, a more comprehensive evaluation should be considered and/or a referral to a genetic counselor. The [employer], [employer], and NCCN Guidelines advise the consideration of Breast MRI as an adjunct to screening mammography in patients whose Lifetime risk to develop breast cancer is 20% or higher. This exam was interpreted at Station ID: [id number]. NOTE: For mammograms, a report in lay terms will be sent to the patient. Approximately 15% of breast malignancies will not be visualized mammographically. In the management of a palpable breast mass, a negative mammogram must not discourage biopsy of a clinically suspicious lesion. Electronically Signed By: Pascual ocampo/sydnee:02/20/2022 09:08:01 letter sent: Normal Exam ACR BI-RADS Category 1: Negative [id number]
--- NOTE | 2022-02-19 15:16 | DI.US.S_ITS ---
PROCEDURE: US PELVIC COMPLETE INDICATIONS: FU left ovarian cyst TECHNIQUE: Real-time scanning was performed of the pelvic organs, with image documentation. Additional endovaginal scanning was necessary due to incomplete visualization of the adnexal and endometrial structures by transabdominal scanning. COMPARISON: [facility], , US PELVIC COMPLETE, 10/16/2021, 17:14. FINDINGS: Uterus: Uterus is anteverted and enlarged in size at 7.2 x 6.4 x 3.7 cm. The myometrium is heterogeneous. The endometrium measures 1.9 mm combined thickness. Punctate echogenic foci associated with endometrial complex likely related to retained blood products. 2 intramural fibroids redemonstrated which the larger appears to be similar in size measuring up to 4.0 cm and the smaller appears to be increase in size which may be technically related measuring now up to 3.8 cm. Ovaries: Right ovary is not well seen. Left ovary measures 3.2 x 2.0 x 1.7 cm with volume estimated at 5.7 cc. No change in simple left ovarian cyst measuring 1.3 cm. Other: No pathologic free abdominal or pelvic fluid. IMPRESSION: 1. Uterine fibroids redemonstrated largest measuring up to 4.0 cm which appears similar prior examination and the smaller measuring larger on today's examination likely technically related measuring up to 3.8 cm. 2. Right ovary is not visualized and stable appearance of simple left ovarian cyst measuring 1.3 cm. We strive to produce accurate, complete, and clear reports of imaging services. To assist us in improving patient care, this report was composed using standard report templates and voice recognition software. Therefore, it may contain abnormal punctuation, insertions and/or omissions. Occasional wrong-word or sound-alike substitutions may occur. Though we review the report and make efforts to correct it, we do recommend that the report be read carefully in proper context to recognize any text inaccuracies. Dictated by: Burke Juarez [facility] Interpreted: Surjit Echavarria MD on 02/19/2022 at 16:41 Approved by: Surjit Echavarria M.D. on 02/19/2022 at 17:33
== END ==
PROVIDERS: PCP Student in an Organized Health Care Education/Training Program; Referring Provider Obstetrics & Gynecology; Visit Provider Obstetrics & Gynecology
DX: D25.1 Intramural leiomyoma of uterus (principal); Z80.3 Family history of malignant neoplasm of breast; Z12.31 Encounter for screening mammogram for malignant neoplasm of breast; N83.292 Other ovarian cyst, left side
CPT/HCPCS: 76830; 76856; 77063; 77067

== ENCOUNTER → 2022-03-27 09:25 | Outpatient (CLI) | payer OTHER, SELFPAY ==
[2021-12-13 15:20] VITALS: BMI 21.6
[2022-03-27 11:03] LABS: COVID19 -Nasal RAPID Negative (Negative)
== END ==
PROVIDERS: PCP Student in an Organized Health Care Education/Training Program; Visit Provider Surgery
DX: Z01.812 Encounter for preprocedural laboratory examination (principal); Z20.822 Contact with and (suspected) exposure to COVID-19
CPT/HCPCS: 87635; C9803

== ENCOUNTER 2022-03-28 08:24 | Day surgery (SDC) | payer OTHER, SELFPAY ==
[2021-12-13 15:20] VITALS: BMI 21.6
--- NOTE | 2022-03-28 | PATH_ITS ---
[facility] Accession Number: [id number] . 01 Material submitted: . PART A: duodenum - DUODENUM PART B: stomach - ANTRUM PART C: ileum - TERMINAL ILEUM . 01 Diagnosis: A. Duodenum, Biopsy: Small bowel mucosa with no diagnostic abnormality. Negative for active inflammation, features of sprue, dysplasia, or malignancy. . B. Antrum, Biopsy: Gastric antral mucosa with no diagnostic abnormality. No evidence of Helicobacter organisms on H/E stain. Negative for intestinal metaplasia. Negative for dysplasia or malignancy. . C. Terminal Ileum, Biopsy: Ileal mucosa with no diagnostic abnormality. Negative for active inflammation, granulomas, dysplasia or malignancy. MRV 04/01/2022 1253 Local . 01 Electronically signed: . Wero Ace MD, PhD, Pathologist NPI- [id number] . 01 Gross description: . The specimen is received in formalin in three parts, all labeled with the patient's name and . . Part A, designated duodenum, consists of two irregular monet soft tissue fragments ranging from 0.2 to 0.3 cm in greatest dimension. Submitted entirely in cassette A1. . Part B, designated antrum, consists of four irregular monet soft tissue fragments ranging from 0.2 to 0.4 cm in greatest dimension. Submitted entirely in cassette B1. . Part C, designated terminal ileum, consists of three irregular monet soft tissue fragments ranging from 0.2 to 0.4 cm in greatest dimension. Submitted entirely in cassette C1. ([id number]) /MRV 03/29/2022 1713 Local . 01 Pathologist provided ICD-10: Z85.048, Z12.11 . 01 CPT . 678585, 448470, 507680 Specimen Comment: A courtesy copy of this report has been sent to [phone] Performed at: 01 [facility] [address] [facility], [place], [place] [id number] MD Efrain Lunsford MD Phone: [phone]
[2022-03-28 08:39] VITALS: BP 126/81; PULSE 110; RESP 16; TEMP 36.2; O2SAT 98; BMI 22.3
[2022-03-28] MEDS: LACTATED RINGERS 1,000 ML 42 ML IV ×2 (08:49→09:51)
--- NOTE | 2022-03-28 08:50 | SUR.PREOP ---
Pt very exhausted, many life circumstances currently happening. Pt very tired, shaky, anxious. Given verbal reassurance that she will have a good experience. Appears more calm after admission complete. Blood sugar checked- 68 upon arrival. IV fluids started, bolused 500mL. Pt's mother is admitted right now and ill- stressful time in life. Please take note.
--- NOTE | 2022-03-28 09:28 | PM.HP.1 ---
History of Present Illness History of Present Illness Date Patient Seen: 03/28/22 Time Patient Seen: 09:28 Chief complaint: DX COLONOSCOPY/EGD Narrative: Chayo is here for her EGD and colonoscopy. Please see the note from February for details. Patient History Medical History Allergy Arthritis Chicken pox (~1965) Colon polyps (2006) Colorectal cancer (2006) Hayfever (1979) Hemorrhoids (2015) Hepatitis C (1981) Hepatitis non A non B Hypoglycemia Seafood allergy Uterine fibroid Surgical History Anesthesia History of Achilles tendon repair (2014) History of colon surgery (09/2005) History of colonoscopy (05/2015) History of repair of anterior cruciate ligament of right knee (07/2005) Status post colectomy (2006) Family & Social History Family History Father Lung cancer Skin cancer Rheumatoid arthritis Cancer Bleeding ulcer Grandmother Breast cancer Mother Age: 87 Coronary artery disease Breast cancer Hx of CABG Grandmother Breast cancer Brother Severe back pain Social History: household members none Tobacco & Substance use: Tobacco type cigarettes Smoking Status Former smoker alcohol intake current alcohol intake frequency 0-2 drinks per day Substance Use Type does not use Meds Home Medications and Allergies Home Medications Medication Instructions Recorded Confirmed Type aspirin 81 mg capsule 81 mg PO QWEEK ##0 01/17/11 02/27/22 History multivitamin 1 tab PO QWEEK ##0 06/07/11 02/27/22 History calcium citrate 250 mg 800 mg PO SEEINSTR ##0 03/11/12 02/27/22 History calcium-vitamin D3 5 mcg (200 unit) tablet (Citracal Regular) cholecalciferol (vitamin D3) 125 5,000 unit PO QWEEK 12/03/17 02/27/22 History mcg (5,000 unit) capsule lactobacillus combination no.9 4 4,000 mmu cells PO DAILY 12/03/17 02/27/22 History billion cell capsule (Adult 50 Plus Probiotic) Allergies Allergy/AdvReac Type Severity Reaction Status Date / Time codeine [CODEINE] AdvReac Mild Gastrointestinal Verified 02/27/22 10:54 Upset-as a child Exam Vital Signs (past 8 hours): - 03/28/22 08:39 Temperature 97.1 F L Pulse Rate 110 H Respiratory Rate 16 Blood Pressure 126/81 Pulse Oximetry 98 Oxygen Delivery Method Room Air Oxygen Delivery Method Room Air Const General: healthy appearing Assessment & Plan Assessment and plan (1) Abdominal bloating: Status: Acute Plan We will plan to proceed with EGD and colonoscopy. She knows about the risks and would like to proceed. Time Spent With Patient Critical Care time: I spent a total of [] minutes of critical care time on this patient's care today; this time is exclusive of procedural time.
--- NOTE | 2022-03-28 10:10 | P.OP.EGD&C_ITS ---
Operative Date/Time/Diagnoses Date of procedure: 03/28/22 Time of procedure: 10:10 Pre-op diagnosis: History of rectal cancer and abdominal pain Post-op diagnosis: same Procedure & Clinicians Study performed: EGD and colonoscopy Same procedure as scheduled: Yes Surgeon: Jeremy Leon Procedure Notes Procedure in detail: Surgeon: Jeremy Leon MD Anesthesia: Dr. Mame MORROW Procedure in detail: A timeout was performed. A bite blocked was placed and monitors were attached to the patient. The patient was positioned in a left lateral decubitus position. Sedation was administered by Dr. Vilchis. Once the patient was sedated the endoscope was inserted through the bite block and passed through the esophagus and stomach and into the duodenum. No abnormalities were noted in the duodenum however we took random biopsies from the duodenal mucosa. The duodenal bulb was normal. We then withdrew the scope into the stomach. No abnormalities were seen. The endoscope was retroflexed and no hiatal hernia was seen. The endoscope was straightned and withdrawn into the esophagus. No fur ther abnormalities were noted. Findings: Normal esophagus, stomach and duodenum Next we repositioned the patient for a colonoscopy. A digital rectal exam was performed and was normal. The colonoscope was inserted and advanced to the cecum. The appendiceal orifice was identified and photographed. The terminal ileum was intubated and random biopsies were taken from the mucosa. No gross abnormalities were noted. The scope was slowly withdrawn over greater than 6 minutes. No polyps were seen. The prior surgical anastomosis was seen in the mid rectum. The scope was retroflexed in the rectum and no abnormalities were noted. Findings: Normal colon and terminal ileum EBL: 2 mL Scope withdrawal time: 8 minutes Sedation minutes: 13 minutes Post-procedure Disposition: PACU
[2022-03-28 10:11] VITALS: BP 98/59; PULSE 108; RESP 15; TEMP 36.5; O2SAT 96
[2022-03-28 10:16] VITALS: BP 109/59; PULSE 110; RESP 20; O2SAT 97
[2022-03-28 10:21] VITALS: BP 108/69; PULSE 108; RESP 23; TEMP 36.1; O2SAT 96
[2022-03-28 10:29] VITALS: BP 123/68; PULSE 104; RESP 16; TEMP 36.1; O2SAT 99
[2022-03-28 10:39] VITALS: BP 107/63; PULSE 97; RESP 16; O2SAT 99
== END 2022-03-28 10:54 | disposition home or self-care (01) ==
PROVIDERS: PCP Student in an Organized Health Care Education/Training Program; Referring Provider Surgery; Visit Provider Surgery
PROC: 0DJ08ZZ Inspection of Upper Intestinal Tract, Via Natural or Artificial Opening Endoscopic (ICD-10-PCS; CPT 43235; principal; 2022-03-28 09:30)
PROC: 0DJD8ZZ Inspection of Lower Intestinal Tract, Via Natural or Artificial Opening Endoscopic (ICD-10-PCS; CPT 45378; 2022-03-28 09:30)
DX: R10.9 Unspecified abdominal pain (principal); R14.0 Abdominal distension (gaseous); Z85.048 Personal history of other malignant neoplasm of rectum, rectosigmoid junction, and anus
CPT/HCPCS: 45380; 43235

== ENCOUNTER → 2022-08-05 16:01 | Outpatient (CLI) | payer OTHER, SELFPAY ==
[2021-12-13 15:20] VITALS: BMI 21.6
[2022-08-05 16:55] LABS: Add Manual Diff / Slide Review NO; Basophils Absolute Auto 100 /uL (0-100); Basophils Percent Auto 0.8 % (0-2); Eosinophils Absolute Auto 200 /uL (0-450); Eosinophils Percent Auto 3.7 % (2-4); Hematocrit 39.6 % (36-46); Hemoglobin 13.6 g/dL (12.0-16.0); Lymphocytes Absolute Auto 3100 /uL (1100-4500); Lymphocytes Percent Auto 51.2 % (25-40); Mean Corpuscular HGB Conc 34.4 % (30-36); Mean Corpuscular Hemoglobin 33.1 PG (26-34); Mean Corpuscular Volume 96.4 fL (80-100); Monocytes Absolute Auto 600 /uL (0-900); Neutrophils Absolute Auto 2200 /uL (1500-7000); Neutrophils Percent Auto 35.3 % (50-75); Platelet Count 284 X10^3/uL (150-400); Red Blood Cell Count 4.11 X10^6/uL (4.0-5.2); White Blood Cell Count 6.1 X10^3/uL (4.5-11.0)
[2022-08-05 17:33] LABS: Alanine Aminotransferase 34 IU/L (<35); Albumin 4.5 g/dL (3.5-5.0); Albumin Globulin Ratio 1.3 (1.0-2.8); Alkaline Phosphatase 49 U/L (38-126); Aspartate Aminotransferase 32 IU/L (14-36); BUN Creatinine Ratio 18.3 (6-22); Bilirubin Total 0.2 mg/dL (0.2-1.3); Blood Urea Nitrogen 11 mg/dL (7-17); C-Reactive Protein Quant < 0.5 mg/dL (<1.0); Calcium 9.3 mg/dL (8.4-10.2); Carbon Dioxide 25 mmol/L (22-32); Chloride 104 mmol/L (98-107); Estimated Glomerular Filt Rate > 60 mL/min (>60); Globulin 3.4 g/dL (1.7-4.1); Glucose 86 mg/dL (80-110); HEMOLYSIS < 15 (0-50); Lipase 450 U/L (23-300); Potassium 4.2 mmol/L (3.4-5.1); Sodium 141 mmol/L (137-145); Total Protein 7.9 g/dL (6.3-8.2)
[2022-08-05 17:45] LABS: Procalcitonin 0.08 ng/mL (<0.5)
== END ==
PROVIDERS: PCP Student in an Organized Health Care Education/Training Program; Referring Provider Student in an Organized Health Care Education/Training Program; Visit Provider Student in an Organized Health Care Education/Training Program
DX: R10.13 Epigastric pain (principal); R10.9 Unspecified abdominal pain; R19.7 Diarrhea, unspecified
CPT/HCPCS: 36415; 80053; 83690; 84145; 85025; 86140

== ENCOUNTER → 2022-08-08 15:02 | Outpatient (CLI) | payer OTHER, SELFPAY ==
[2021-12-13 15:20] VITALS: BMI 21.6
[2022-08-08 23:24] LABS: Adenovirus F 40/41 Not Detected (Not Detect); Astrovirus Not Detected (Not Detect); Campylobacter Not Detected (Not Detect); Clostridium difficile toxin AB Not Detected (Not Detect); Cryptosporidium Not Detected (Not Detect); Cyclospora cayetanensis Not Detected (Not Detect); Entamoeba histolytica Not Detected (Not Detect); Enteroaggregative E.coli Not Detected (Not Detect); Enteropathogenic E.coli Not Detected (Not Detect); Enterotoxigenic E.coli It/st Not Detected (Not Detect); Giardia lamblia Not Detected (Not Detect); Norovirus GI/GII Not Detected (Not Detect); Plesiomonsa shigelloides Not Detected (Not Detect); Rotavirus A Not Detected (Not Detect); Salmonella Not Detected (Not Detect); Sapovirus Not Detected (Not Detect); Shiga-like toxin-prod E.coli Not Detected (Not Detect); Shigella/Enteroinvasive E.coli Not Detected (Not Detect); Vibrio Not Detected (Not Detect); Vibrio cholerae Not Detected (Not Detect); Yersinia enterocolitica Not Detected (Not Detect)
[2022-08-12 13:34] LABS: H. Pylori Antigen Stool Negative (Negative)
== END ==
PROVIDERS: PCP Student in an Organized Health Care Education/Training Program; Referring Provider Student in an Organized Health Care Education/Training Program; Visit Provider Student in an Organized Health Care Education/Training Program
DX: R10.13 Epigastric pain (principal); R10.9 Unspecified abdominal pain; R19.7 Diarrhea, unspecified
CPT/HCPCS: 87338; 87493; 87507

== ENCOUNTER → 2022-09-24 13:50 | Outpatient (CLI) | payer OTHER, SELFPAY ==
[2021-12-13 15:20] VITALS: BMI 21.6
[2022-09-24 15:24] LABS: COVID-19 CEPHEID 4-PLEX PCR Negative (Negative); Influenza A - CEPHEID Flu A NEGATIVE (NEGATIVE); Influenza B - CEPHEID Flu B NEGATIVE (NEGATIVE); Respiratory Syncytial Virus Negative (Negative)
== END ==
PROVIDERS: PCP Student in an Organized Health Care Education/Training Program; Visit Provider Pediatrics
DX: J02.9 Acute pharyngitis, unspecified (principal); R19.7 Diarrhea, unspecified; R50.9 Fever, unspecified; R53.83 Other fatigue
CPT/HCPCS: 0241U

== ENCOUNTER → 2022-09-24 14:25 | Outpatient (CLI) | payer OTHER, SELFPAY ==
[2021-12-13 15:20] VITALS: BMI 21.6
[2022-09-24 15:15] LABS: Alanine Aminotransferase 34 IU/L (<35); Albumin 4.6 g/dL (3.5-5.0); Albumin Globulin Ratio 1.4 (1.0-2.8); Alkaline Phosphatase 65 U/L (38-126); Aspartate Aminotransferase 37 IU/L (14-36); BUN Creatinine Ratio 14.5 (6-22); Bilirubin Total 0.6 mg/dL (0.2-1.3); Blood Urea Nitrogen 9 mg/dL (7-17); Calcium 10.1 mg/dL (8.4-10.2); Carbon Dioxide 30 mmol/L (22-32); Chloride 96 mmol/L (98-107); Estimated Glomerular Filt Rate > 60 mL/min (>60); Globulin 3.4 g/dL (1.7-4.1); Glucose 117 mg/dL (80-110); HEMOLYSIS < 15 (0-50); Lipase 378 U/L (23-300); Potassium 4.2 mmol/L (3.4-5.1); Sodium 135 mmol/L (137-145)
[2022-09-24 15:45] LABS: Carcinoembryonic Antigen 2.3 ng/mL (0.1-3.0)
== END ==
PROVIDERS: PCP Pediatrics; Referring Provider Pediatrics; Visit Provider Pediatrics
DX: R10.13 Epigastric pain (principal); R10.9 Unspecified abdominal pain; R14.0 Abdominal distension (gaseous); R19.7 Diarrhea, unspecified; R74.8 Abnormal levels of other serum enzymes; J02.9 Acute pharyngitis, unspecified; R50.9 Fever, unspecified; R53.83 Other fatigue
CPT/HCPCS: 0241U; 36415; 80053; 82378; 83690

== ENCOUNTER → 2022-10-04 06:44 | Outpatient (CLI) | payer OTHER, SELFPAY ==
[2021-12-13 15:20] VITALS: BMI 21.6
--- NOTE | 2022-10-04 06:45 | DI.US.S_ITS ---
PROCEDURE: US ABDOMEN LIMITED INDICATIONS: CHRONIC ELEVATED LIPASE TECHNIQUE: Real-time focused scanning was performed of the abdomen, with image documentation. COMPARISON: [facility], CT, CT ABDOMEN PELVIS W CON, 10/11/2021, 12:09. FINDINGS: Liver measures 13.1 cm in maximum dimension. The liver is mildly increased in echogenicity. Hyperechoic area is seen in the periportal region of the right hepatic lobe measuring 3.4 x 2.6 x 1.0 cm. Additional 3.5 x 0.5 x 0.4 cm hyperechoic lesion is seen more superiorly in the right hepatic lobe. Main portal vein measures 13 mm in diameter. Hepatopetal flow is seen in the main portal vein. The gallbladder is contracted and not well evaluated. No intrahepatic or extrahepatic biliary ductal dilatation. Common bile duct measures 4.6 mm in diameter. The visualized pancreas is unremarkable. No free fluid in the right upper quadrant. IMPRESSION: 1. Visualized pancreas is unremarkable. 2. No biliary duct dilatation. Gallbladder is contracted and not well evaluated. 3. Increased hepatic echogenicity is seen, most commonly secondary to diffuse hepatic steatosis but other sources of hepatocellular disease cannot be excluded. Recommend clinical correlation. 4. Nonspecific hyperechoic lesions in the liver could represent focal fatty infiltration or hemangiomas versus other nonspecific hepatic masses. Consider follow-up ultrasound versus further evaluation with liver protocol MRI or CT if indicated clinically. Approved by: Baudilio Minaya M.D. on 10/04/2022 at 12:38
== END ==
PROVIDERS: PCP Pediatrics; Referring Provider Pediatrics; Visit Provider Pediatrics
DX: R74.8 Abnormal levels of other serum enzymes; R19.7 Diarrhea, unspecified; R10.9 Unspecified abdominal pain; R10.13 Epigastric pain; K76.9 Liver disease, unspecified
CPT/HCPCS: 76705

== ENCOUNTER → 2022-11-04 09:22 | Outpatient (CLI) | payer OTHER, SELFPAY ==
[2021-12-13 15:20] VITALS: BMI 21.6
[2022-11-04 10:24] LABS: Add Manual Diff / Slide Review NO; Basophils Absolute Auto 100 /uL (0-100); Basophils Percent Auto 1.4 % (0-2); Eosinophils Absolute Auto 100 /uL (0-450); Eosinophils Percent Auto 3.6 % (2-4); Hematocrit 39.4 % (36-46); Hemoglobin 13.4 g/dL (12.0-16.0); Lymphocytes Absolute Auto 1800 /uL (1100-4500); Lymphocytes Percent Auto 43.4 % (25-40); Mean Corpuscular HGB Conc 33.9 % (30-36); Mean Corpuscular Hemoglobin 32.8 PG (26-34); Mean Corpuscular Volume 96.7 fL (80-100); Monocytes Absolute Auto 400 /uL (0-900); Monocytes Percent Auto 9.4 % (3-14); Neutrophils Absolute Auto 1800 /uL (1500-7000); Neutrophils Percent Auto 42.2 % (50-75); Platelet Count 268 X10^3/uL (150-400); Red Blood Cell Count 4.07 X10^6/uL (4.0-5.2); Red Cell Distribution Width 13.8 % (11.6-14.8); White Blood Cell Count 4.2 X10^3/uL (4.5-11.0)
[2022-11-04 10:46] LABS: Alanine Aminotransferase 49 IU/L (<35); Albumin 4.7 g/dL (3.5-5.0); Albumin Globulin Ratio 1.3 (1.0-2.8); Alkaline Phosphatase 65 U/L (38-126); Aspartate Aminotransferase 68 IU/L (14-36); BUN Creatinine Ratio 16.2 (6-22); Bilirubin Total 1.2 mg/dL (0.2-1.3); Blood Urea Nitrogen 11 mg/dL (7-17); Calcium 9.3 mg/dL (8.4-10.2); Carbon Dioxide 28 mmol/L (22-32); Chloride 98 mmol/L (98-107); Cholesterol 287 mg/dL (140-199); Estimated Glomerular Filt Rate > 60 mL/min (>60); Globulin 3.5 g/dL (1.7-4.1); Glucose 117 mg/dL (80-110); HDL Cholesterol 83 mg/dL (40-60); HEMOLYSIS < 15 (0-50); LDL Cholesterol Calculated 184 mg/dL (<100); Lipase 382 U/L (23-300); Potassium 3.5 mmol/L (3.4-5.1); Sodium 137 mmol/L (137-145); Total Protein 8.2 g/dL (6.3-8.2); Triglycerides 100 mg/dL (35-150)
[2022-11-04 11:04] LABS: Appearance Urine UA CLEAR; Bilirubin Urine UA 1+ (NEGATIVE); Color Urine UA YELLOW; Glucose Urine UA NEGATIVE (Negative); Ketones Urine UA 1+ (NEGATIVE); Leukocyte Esterase Urine UA TRACE (NEGATIVE); Nitrite Urine UA NEGATIVE (Negative); Occult Blood Urine UA NEGATIVE (Negative); Protein Urine UA NEGATIVE (Negative); Specific Gravity Urine UA 1.025 (1.000-1.035); Urobilinogen Urine UA 0.2 E.U./dL (0.2)
[2022-11-04 11:16] LABS: pH Urine UA 5.5 (4.5-8.0)
[2022-11-04 11:18] LABS: Bacteria Urine Occasional (0-1); Culture Indicated Urine Specimen Cultured; Ictotest Urine Negative (Negative); RBC Urine None Seen (0-5/HPF); Squamous Epithelial Cell Urine 1-5 /HPF (0-5/HPF); WBC Urine 1-5/HPF (0-5/HPF)
[2022-11-04 12:13] LABS: Erythrocyte Sedimentation Rate 1 MM/HR (0-20)
[2022-11-04 17:05] LABS: Hep C Virus Ab w/Reflex Quant NEGATIVE s/c (NEGATIVE)
[2022-11-05 04:05] LABS: HBsAg Screen Negative (Negative); Hepatitis A Antibody IgM Negative (Negative); Hepatitis B Core Antibody IgM Negative (Negative); Hepatitis C Antibody Non Reactive (Non Reactive)
== END ==
PROVIDERS: PCP Pediatrics; Referring Provider Pediatrics; Visit Provider Pediatrics
DX: E78.5 Hyperlipidemia, unspecified (principal); R10.9 Unspecified abdominal pain; R19.7 Diarrhea, unspecified; R74.8 Abnormal levels of other serum enzymes; R79.89 Other specified abnormal findings of blood chemistry
CPT/HCPCS: 36415; 80053; 80061; 80074; 81001; 83690; 85025; 85651; 86803; 87086

== ENCOUNTER → 2022-11-20 09:02 | Outpatient (CLI) | payer OTHER, SELFPAY ==
[2021-12-13 15:20] VITALS: BMI 21.6
--- NOTE | 2022-11-20 09:03 | DI.CT.S_ITS ---
PROCEDURE: CT ABDOMEN LIVER PROTOCOL INDICATIONS: elevated liver labs/lipase, ongoing GI issues TECHNIQUE: 4 phase scanning was performed. Non-contrast 5 mm axial sections acquired from the diaphragm to the iliac crests. Following the administration of intravenous contrast, 5 mm thick arterial-phase, portal venous-phase, and 5-minute delayed phase images were acquired through the liver. 5 mm thick coronal and sagittal reformats were performed. For radiation dose reduction, the following was used: automated exposure control, adjustment of mA and/or kV according to patient size. COMPARISON: [facility], CT, CT ABDOMEN PELVIS W CON, 10/11/2021, 12:09. [facility], US, US ABDOMEN LIMITED, 10/04/2022, 7:10. FINDINGS: Image quality: Good Lower chest: Lung bases are unremarkable. Heart size is normal. No hiatal hernia. Solid organs: There is suspected regional steatosis around the portal bifurcation and falciform ligament. Again seen is a possible small hypervascular lesion in segment 4 subcapsular region no highly suspicious liver lesion otherwise. The liver contour is within normal limits. Gallbladder is unremarkable. No pathologic dilation of the biliary tree or pancreatic duct. No splenomegaly. No adrenal nodules. No hydronephrosis. Vessels and lymph nodes: No abdominal aortic aneurysm. No pathologic lymph nodes by size criteria. Bowel and peritoneum: No evidence of bowel obstruction or pathologic ascites. Body wall: Unremarkable Bones: No acute or suspicious osseous finding. IMPRESSION: No significant liver contour abnormality. Stable hypervascular lesion in the subcapsular region of segment 4, most commonly benign hemangioma or FNH. Subtle hypoattenuating lesions may represent regional steatosis. Consider follow-up with MRI if the patient has a primary malignancy history or is considered high risk. No biliary ductal dilation, significant pancreatic inflammation, pancreatic ductal dilation, or other imaging finding to explain abnormal labs. If further evaluation is desired, consider abdominal MRI or liver sampling. Dictated by: Pascual Koch M.D. on 11/20/2022 at 16:45 Approved by: Pascual Koch M.D. on 11/20/2022 at 16:56
== END ==
PROVIDERS: PCP Pediatrics; Referring Provider Pediatrics; Visit Provider Pediatrics
DX: K76.9 Liver disease, unspecified (principal); R10.13 Epigastric pain; R10.31 Right lower quadrant pain; R14.0 Abdominal distension (gaseous); R19.7 Diarrhea, unspecified; R79.89 Other specified abnormal findings of blood chemistry; R74.8 Abnormal levels of other serum enzymes
CPT/HCPCS: 74170; Q9967

== ENCOUNTER → 2023-02-19 10:20 | Outpatient (CLI) | payer OTHER, SELFPAY ==
[2021-12-13 15:20] VITALS: BMI 21.6
[2023-02-19 11:47] LABS: Add Manual Diff / Slide Review NO; Basophils Absolute Auto 100 /uL (0-100); Basophils Percent Auto 2.5 % (0-2); Eosinophils Absolute Auto 200 /uL (0-450); Hematocrit 42.4 % (36-46); Hemoglobin 14.6 g/dL (12.0-16.0); Lymphocytes Absolute Auto 1900 /uL (1100-4500); Lymphocytes Percent Auto 32.2 % (25-40); Mean Corpuscular HGB Conc 34.4 % (30-36); Mean Corpuscular Hemoglobin 32.7 PG (26-34); Monocytes Absolute Auto 500 /uL (0-900); Monocytes Percent Auto 7.8 % (3-14); Neutrophils Absolute Auto 3200 /uL (1500-7000); Neutrophils Percent Auto 54.5 % (50-75); Platelet Count 305 X10^3/uL (150-400); Red Blood Cell Count 4.47 X10^6/uL (4.0-5.2); Red Cell Distribution Width 13.4 % (11.6-14.8); White Blood Cell Count 5.9 X10^3/uL (4.5-11.0)
[2023-02-19 12:13] LABS: Alanine Aminotransferase 42 IU/L (<35); Albumin 4.9 g/dL (3.5-5.0); Albumin Globulin Ratio 1.3 (1.0-2.8); Alkaline Phosphatase 65 U/L (38-126); Aspartate Aminotransferase 51 IU/L (14-36); Bilirubin Total 1.1 mg/dL (0.2-1.3); Blood Urea Nitrogen 13 mg/dL (7-17); Calcium 10.3 mg/dL (8.4-10.2); Carbon Dioxide 26 mmol/L (22-32); Chloride 96 mmol/L (98-107); Estimated Glomerular Filt Rate > 60 mL/min (>60); Globulin 3.7 g/dL (1.7-4.1); Glucose 97 mg/dL (80-110); HEMOLYSIS < 15 (0-50); Lipase 253 U/L (23-300); Potassium 4.4 mmol/L (3.4-5.1); Sodium 135 mmol/L (137-145); Total Protein 8.6 g/dL (6.3-8.2)
[2023-02-19 12:40] LABS: TSH w/ Reflex to FT4 0.14 uIU/mL (0.47-4.68)
== END ==
PROVIDERS: PCP Family Medicine; Referring Provider Family Medicine; Visit Provider Family Medicine
DX: R79.89 Other specified abnormal findings of blood chemistry (principal); R74.8 Abnormal levels of other serum enzymes; F41.1 Generalized anxiety disorder; R73.9 Hyperglycemia, unspecified
CPT/HCPCS: 36415; 80053; 83036; 83690; 84439; 84443; 85025

== ENCOUNTER → 2023-05-15 14:22 | Outpatient (CLI) | payer OTHER, SELFPAY ==
[2021-12-13 15:20] VITALS: BMI 21.6
[2023-05-15 15:19] LABS: Alanine Aminotransferase 20 IU/L (<35); Albumin 4.6 g/dL (3.5-5.0); Albumin Globulin Ratio 1.3 (1.0-2.8); Alkaline Phosphatase 44 U/L (38-126); Aspartate Aminotransferase 27 IU/L (14-36); BUN Creatinine Ratio 19.7 (6-22); Bilirubin Total 0.7 mg/dL (0.2-1.3); Blood Urea Nitrogen 13 mg/dL (7-17); Calcium 9.7 mg/dL (8.4-10.2); Carbon Dioxide 27 mmol/L (22-32); Chloride 101 mmol/L (98-107); Estimated Glomerular Filt Rate > 60 mL/min (>60); Globulin 3.6 g/dL (1.7-4.1); Glucose 100 mg/dL (80-110); HEMOLYSIS < 15 (0-50); Lipase 331 U/L (23-300); Potassium 4.2 mmol/L (3.4-5.1); Sodium 137 mmol/L (137-145); Total Protein 8.2 g/dL (6.3-8.2)
[2023-05-15 15:21] LABS: Add Manual Diff / Slide Review NO; Basophils Absolute Auto 100 /uL (0-100); Basophils Percent Auto 1.2 % (0-2); Eosinophils Absolute Auto 100 /uL (0-450); Eosinophils Percent Auto 1.9 % (2-4); Hematocrit 40.8 % (36-46); Hemoglobin 13.8 g/dL (12.0-16.0); Lymphocytes Absolute Auto 2300 /uL (1100-4500); Lymphocytes Percent Auto 44.8 % (25-40); Mean Corpuscular HGB Conc 33.8 % (30-36); Mean Corpuscular Hemoglobin 32.4 PG (26-34); Mean Corpuscular Volume 95.7 fL (80-100); Monocytes Absolute Auto 400 /uL (0-900); Monocytes Percent Auto 8.1 % (3-14); Neutrophils Absolute Auto 2200 /uL (1500-7000); Platelet Count 316 X10^3/uL (150-400); Red Blood Cell Count 4.26 X10^6/uL (4.0-5.2); Red Cell Distribution Width 13.6 % (11.6-14.8); White Blood Cell Count 5.1 X10^3/uL (4.5-11.0)
[2023-05-15 15:49] LABS: TSH w/ Reflex to FT4 0.95 uIU/mL (0.47-4.68)
== END ==
PROVIDERS: PCP Family Medicine; Referring Provider Physician Assistant; Visit Provider Physician Assistant
DX: R14.0 Abdominal distension (gaseous) (principal); R79.89 Other specified abnormal findings of blood chemistry; F41.1 Generalized anxiety disorder; Z63.6 Dependent relative needing care at home
CPT/HCPCS: 36415; 80053; 83690; 84443; 85025

== ENCOUNTER → 2023-05-26 16:14 | Outpatient (CLI) | payer OTHER, SELFPAY ==
[2021-12-13 15:20] VITALS: BMI 21.6
--- NOTE | 2023-05-26 16:15 | DI.MRI.S_ITS ---
PROCEDURE: MR ABDOMEN LIVER PROTOCOL INDICATIONS: chronic distension and pain, hx colon cancer TECHNIQUE: Coronal HASTE, axial 2D FLASH in- and [id number]; axial breath-hold T2 FSE. Dynamic axial VIBE during the administration of contrast; post-contrast coronal VIBE or 2D FLASH with fat saturation from the hepatic dome to the iliac crests. Optional diffusion weighted imaging and ADC may be performed. COMPARISON: [facility], CT, CT ABDOMEN LIVER PROTOCOL, 11/20/2022, 9:16. FINDINGS: Image quality: Diagnostic. Lung bases: Unremarkable. Liver: Non cirrhotic liver morphology. In segment 4B, there is a flash filling lesion without signal characteristics on other sequences (series 8, image 46), most consistent with a vascular shunt. Mild hepatic steatosis. Gallbladder: No gallstones or wall thickening. Biliary ducts: No biliary dilation. Pancreas: No ductal dilation. Spleen: Size is within normal limits. Adrenal Glands: No adrenal nodules. Kidneys and Ureters: No hydronephrosis. No solid mass. No complex renal cystic lesion which requires follow up. Stomach and Bowel: Normal colonic caliber, without significant wall thickening. Peritoneum: No abnormal intraperitoneal fluid. No free air. Ventral Wall: No hernia. Abdominal Nodes: No retroperitoneal or mesenteric adenopathy by size criteria. Vessels: Aorta and inferior vena cava are normal in size. Bones: No aggressive osseous abnormality. Degenerative disc disease, with multilevel opposing degenerative changes. IMPRESSION: Flash filling lesion in segment 4B has imaging characteristics of a benign lesion such as vascular shunt or small hemangioma. Dictated by: Gael Jean M.D. on 05/26/2023 at 16:56 Approved by: Gael Jean M.D. on 05/26/2023 at 17:00
== END ==
PROVIDERS: PCP Family Medicine; Referring Provider Physician Assistant; Visit Provider Physician Assistant
DX: R14.0 Abdominal distension (gaseous) (principal); Z85.048 Personal history of other malignant neoplasm of rectum, rectosigmoid junction, and anus; K76.9 Liver disease, unspecified
CPT/HCPCS: 74183

== ENCOUNTER → 2023-10-03 12:37 | Outpatient (CLI) | payer OTHER, SELFPAY ==
[2021-12-13 15:20] VITALS: BMI 21.6
--- NOTE | 2023-10-03 12:40 | DI.CT.S_ITS ---
PROCEDURE: CT ABDOMEN PELVIS W CON INDICATIONS: Abdominal bloating distention TECHNIQUE: After the administration of intravenous contrast, axial sections acquired from the lung bases to the pubic symphysis. Coronal and sagittal reformats were performed. For radiation dose reduction, the following was used: automated exposure control, adjustment of mA and/or kV according to patient size. COMPARISON: [facility], MR, MR ABDOMEN LIVER PROTOCOL, 05/26/2023, 16:21. [facility], CT, CT ABDOMEN LIVER PROTOCOL, 11/20/2022, 9:16. [facility], CT, CT ABDOMEN PELVIS W CON, 10/11/2021, 12:09. FINDINGS: Image quality: Diagnostic. Lower Chest: No significant findings. ABDOMEN: Liver: Within segment 4B, there is a presumed hemangioma, which is better seen on prior imaging studies. Within the central superior liver on series 2, image 16, within segment 4A there is an area of relatively poor enhancement seen that measures up to 1.8 cm. Gallbladder: No radiopaque gallstones or wall thickening. Biliary ducts: No biliary dilation. Pancreas: No ductal dilation. Spleen: Size is within normal limits. Adrenal Glands: No adrenal nodules. Kidneys and Ureters: No hydronephrosis. No solid mass. No complex renal cystic lesion which requires follow up. Stomach and Bowel: Generalized gastric wall thickening can be seen. No dilated loops of small bowel are seen. The oral contrast flows freely through the small-bowel and can be seen within the colon. An apparent anastomotic staple line can be seen within the right lower quadrant of the abdomen. A rectal anastomotic staple line can be seen, without a complication seen. No significant focal colonic abnormality is seen. Peritoneum: No abnormal intraperitoneal fluid. No free air. Ventral Wall: No significant ventral hernia. Abdominal Nodes: No retroperitoneal or mesenteric adenopathy by size criteria. Vessels: Aorta and inferior vena cava are normal in size. PELVIS: Pelvic Organs: There is a densely calcified uterine fibroid seen, with additional potential fibroid seen elsewhere. Within the left adnexal region, there is a 2.2 cm ovarian cyst. Bladder: No bladder wall thickening, accounting for underdistention. Pelvic Nodes: No enlarged lymph nodes. Miscellaneous: No inguinal hernias are seen. Bones: No aggressive osseous abnormality. Focal L5-S1 degenerative change is seen. Milder degenerative changes are seen elsewhere. IMPRESSION: Negative for ascites. Within the liver within segment 4A, there is an area of reduced enhancement. In this patient with this given history, differential diagnosis includes an early metastasis. This focus was not definitely seen previously. Differential diagnosis includes artifact. - For further evaluation, please consider a dedicated liver protocol MRI without and with IV contrast (assuming that there is no contraindication to MRI). Generalized thickening can be seen of the gastric wall. Please correlate with patient history. Differential diagnosis includes artifact from incomplete distention. If clinically appropriate, please consider upper endoscopy for further evaluation. Unremarkable rectal anastomotic staple line. Additional findings: Densely calcified uterine fibroid, with additional likely fibroids present 2.2 left ovarian cyst Focal L5-S1 degenerative change Dictated by: Rodrigue Garcia M.D. on 10/03/2023 at 14:59 Approved by: Rodrigue Garcia M.D. on 10/03/2023 at 15:09
[2023-10-03 14:29] LABS: Estimated Glomerular Filt Rate > 60 mL/min (>60)
== END ==
PROVIDERS: PCP Family Medicine; Referring Provider Surgery; Visit Provider Surgery
DX: D25.9 Leiomyoma of uterus, unspecified (principal); R14.0 Abdominal distension (gaseous); N83.202 Unspecified ovarian cyst, left side; M47.817 Spondylosis without myelopathy or radiculopathy, lumbosacral region; Z98.0 Intestinal bypass and anastomosis status
CPT/HCPCS: 36415; 74177; 82565; Q9967

== ENCOUNTER → 2023-10-15 15:06 | Outpatient (CLI) | payer OTHER, SELFPAY ==
[2021-12-13 15:20] VITALS: BMI 21.6
--- NOTE | 2023-10-15 16:00 | DI.MRI.S_ITS ---
PROCEDURE: MR ABDOMEN LIVER PROTOCOL INDICATIONS: lesion seen on CT, recommended by Dr. Garcia TECHNIQUE: Coronal HASTE, axial 2D FLASH in- and [id number]; axial breath-hold T2 FSE. Dynamic axial VIBE during the administration of contrast; post-contrast coronal VIBE or 2D FLASH with fat saturation from the hepatic dome to the iliac crests. Optional diffusion weighted imaging and ADC may be performed. COMPARISON: [facility], CT, CT ABDOMEN PELVIS W CON, 10/03/2023, 14:46. [facility], MR, MR ABDOMEN LIVER PROTOCOL, 05/26/2023, 16:21. FINDINGS: Image quality: Diagnostic. Lung bases: Unremarkable. Liver: Non cirrhotic liver morphology. Signal dropout in the out of phase sequence along the anterior margin of the left portal vein, most consistent with focal fat. Focal fat adjacent to the falciform ligament. Segment 4B hemangioma versus vascular shunt is not well demonstrated Gallbladder: No gallstones or wall thickening. Biliary ducts: No biliary dilation. Pancreas: No ductal dilation. Spleen: Size is within normal limits. Adrenal Glands: No adrenal nodules. Kidneys and Ureters: No hydronephrosis. No solid mass. No complex renal cystic lesion which requires follow up. Stomach and Bowel: Normal colonic caliber, without significant wall thickening. Peritoneum: No abnormal intraperitoneal fluid. No free air. Ventral Wall: No hernia. Abdominal Nodes: No retroperitoneal or mesenteric adenopathy by size criteria. Vessels: Aorta and inferior vena cava are normal in size. Bones: No aggressive osseous abnormality. IMPRESSION: Previously described lesion in the central liver corresponds to focal fat based on signal dropout on the out of phase sequence. No suspicious liver lesions. Dictated by: Gael Jean M.D. on 10/15/2023 at 17:12 Approved by: Gael Jean M.D. on 10/15/2023 at 17:16
== END ==
PROVIDERS: PCP Family Medicine; Referring Provider Surgery; Visit Provider Surgery
DX: R14.0 Abdominal distension (gaseous) (principal)
CPT/HCPCS: 74183; A9579

== ENCOUNTER → 2023-10-30 13:32 | Outpatient (CLI) | payer OTHER, SELFPAY ==
[2021-12-13 15:20] VITALS: BMI 21.6
--- NOTE | 2023-10-30 13:33 | DI.MG.S_ITS ---
BILATERAL DIGITAL SCREENING MAMMOGRAM 3D/2D WITH CAD: 10/30/2023 CLINICAL: Routine screening. Family history of breast cancer. Comparison is made to exams dated: 02/19/2022 mammogram, 07/10/2020 mammogram, and 04/24/2019 mammogram - [facility]. Both breasts are heterogeneously dense, which may obscure small masses (category c / 51-75% glandular tissue). Current study was also evaluated with a Computer Aided Detection (CAD) system. No significant masses, calcifications, or other findings are seen in either breast. There has been no significant interval change. IMPRESSION: NEGATIVE There is no mammographic evidence of malignancy. A 1 year screening mammogram is recommended. Based on Tyrer-Cuzick model (a risk assessment model), the patient's lifetime risk is 22.2% and her 10 year risk is 10.1%. If a patient has an elevated risk, a more comprehensive evaluation should be considered and/or a referral to a genetic counselor. The [place] [employer], [employer], and NCCN Guidelines advise the consideration of Breast MRI as an adjunct to screening mammography in patients whose Lifetime risk to develop breast cancer is 20% or higher. This exam was interpreted at Station ID: [id number]. NOTE: For mammograms, a report in lay terms will be sent to the patient. Approximately 15% of breast malignancies will not be visualized mammographically. In the management of a palpable breast mass, a negative mammogram must not discourage biopsy of a clinically suspicious lesion. Electronically Signed By: Pascual ocampo/sydnee:10/30/2023 14:32:23 letter sent: Normal Exam ACR BI-RADS Category 1: Negative [id number]
== END ==
LOC: MAMMO 13:32
PROVIDERS: PCP Family Medicine; Referring Provider Family Medicine; Visit Provider Family Medicine
DX: Z12.31 Encounter for screening mammogram for malignant neoplasm of breast (principal); R92.333 Mammographic heterogeneous density, bilateral breasts
CPT/HCPCS: 77063; 77067

== ENCOUNTER → 2023-12-03 12:56 | Outpatient (CLI) | payer OTHER, SELFPAY ==
[2021-12-13 15:20] VITALS: BMI 21.6
--- NOTE | 2023-12-12 11:10 | DIET.OUTPTC ---
Dietary Outpatient Consultation Note Consultation Date: 12/03/2023 Assessment: 63 y F referred to dietitian for R14.0 - Abdominal distention (gaseous) Chayo reports significant nausea and diarrhea with fever/chills on and off 1 day a week for years and bloating/discomfort after eating daily. Has previously worked with RD. Is wanting to expand food options, but concerns that expansion will lead to/bring about worsening N/D/distension. PMH colorectal cancer and surgical history outlined in general surgery report. Noted findings of focal fatty infiltration of the liver. She has been keeping detailed food log and has list of supplements she is taking, but forgot to bring them. Experiences daily stress as caregiver. Will complete EGD. Diet recall: morning: lemon+salt+honey water K-wmev-raxffu-broth, sometimes small portion cottage cheese or yogurt 10:30a: egg salad (small portion ~1/2 c or less) evening: small portion noodle salad (cashews, spice, estonian noodles) 3 glasses wine/d Tolerates salmon and tofu every once in awhile Notes soapy/chemical taste in mouth. No dry mouth. Takes B vitamins -hair skin and nails, notes hair loss Takes supplements from Dr. Mcbride website including polyphenols and pre/probiotics Ht: 5 ft 4in Wt: 128 lb BMI: 21.6 UBW: 58-59 kg (127-130 lb) within last yr Nutrition Diagnosis: Excessive alcohol intake r/t stages of change aeb 3 glasses wine/day Inadequate energy intake r/t concern of food causing GI symptoms, limited tolerated options aeb diet recall, pt report Interventions: -Est. hansen w/ pt, reviewed symptoms, hx, and foods consumed in detailed -Discussed starting to expand food options with foods similar to those already tolerated, addition of other small freq meal -Reviewed nutrition based strategies to help with nausea/distension -Provided resource on tolerable upper limit for vitamins and minerals to monitor intake w/ supplements Monitoring/Evaluations: f/u in 1 month to establish nutrition plan after EGD and review food log and supplements Electronically Signed by: Leena Rutherford 12/12/23 11:10 Clinical Dietitian [address] [address]
== END ==
PROVIDERS: PCP Family Medicine; Referring Provider Family Medicine
DX: R14.0 Abdominal distension (gaseous) (principal); R10.9 Unspecified abdominal pain; Z68.21 Body mass index [BMI] 21.0-21.9, adult; Z71.3 Dietary counseling and surveillance; R11.0 Nausea; R19.7 Diarrhea, unspecified; R50.9 Fever, unspecified
CPT/HCPCS: 97802

== ENCOUNTER 2023-12-11 12:28 | Day surgery (SDC) | payer OTHER, SELFPAY ==
[2021-12-13 15:20] VITALS: BMI 21.6
--- NOTE | 2023-12-11 | PATH_ITS ---
[facility] Accession Number: [id number] No. of containers..02 Tissue . 01 Material submitted: . PART A: duodenum - DUODENUM PART B: gastrointestinal site - ANTRUM . 01 Diagnosis: Part A: DUODENUM: Duodenal mucosa with no diagnostic alterations. No active inflammation and no evidence of celiac disease. . Part B: ANTRUM: Gastric mucosa with minimal chronic inflammation. No Helicobacter organisms identified. No intestinal metaplasia, dysplasia, or malignancy identified. [facility] 12/17/2023 1203 Local . 01 Electronically signed: . Efrain Lunsford MD, Pathologist NPI- [id number] . 01 Gross description: . Part A: DUODENUM: Received in formalin are 2 fragment(s) of monet, soft tissue measuring 0.2 x 0.2 x 0.2 cm to 0.3 x 0.3 x 0.2 cm submitted entirely in 1 cassette(s) . Part B: ANTRUM: Received in formalin are 4 fragment(s) of monet, soft tissue measuring 0.2 x 0.1 x 0.1 cm to 0.4 x 0.2 x 0.2 cm submitted entirely in 1 cassette(s) /JANAY 12/17/2023 1203 Local . 01 Microscopic: . Part B: ANTRUM: An immunohistochemical stain was performed to evaluate for Helicobacter organisms and is negative. The control stains appropriately. * This test was developed and its performance characteristics determined by [facility]. It has not been cleared or approved by the U.S. Food and Drug Administration. The FDA has determined that such clearance or approval is not necessary. This test is used for clinical purposes. It should not be regarded as investigational or for research. . 01 Pathologist provided ICD-10: K29.30 . 01 CPT . 134537, 234855, [id number] Specimen Comment: A courtesy copy of this report has been sent to [phone] Performed at: [address] [id number] MD Efrain Lunsford MD Phone: [phone]
[2023-12-11 12:44] VITALS: BP 141/90; PULSE 88; RESP 14; TEMP 36.3; O2SAT 98
[2023-12-11] MEDS: LACTATED RINGERS 1,000 ML 42 ML IV (12:53)
--- NOTE | 2023-12-11 12:58 | P.HP_ITS ---
History of Present Illness History of Present Illness Date Patient Seen: 12/11/23 Time Patient Seen: 12:58 Chief complaint: EGD w/poss bx Narrative: Chayo is here for her EGD. She continues to experience abdominal bloating. FORMERLY [facility], [facility] Medical History ASCUS with positive high risk HPV Caregiver stress Elevated blood sugar level YOLIE (generalized anxiety disorder) Viral pharyngitis Elevated LFTs Elevated lipase Hypoglycemia Hepatitis non A non B Arthritis Uterine fibroid Allergy Seafood allergy Hepatitis C (1981) Colon polyps (2006) Hemorrhoids (2015) Chicken pox (~1965) Hayfever (1979) Colorectal cancer (2006) Surgical History History of colon surgery (09/2005) History of repair of anterior cruciate ligament of right knee (07/2005) Anesthesia History of colonoscopy (05/2015) History of Achilles tendon repair (2014) Status post colectomy (2006) Family History Father Lung cancer Skin cancer Rheumatoid arthritis Cancer Bleeding ulcer Grandmother Breast cancer Mother Age: 89 Coronary artery disease Breast cancer Hx of CABG Grandmother Breast cancer Brother Severe back pain Social History household members: none Smoking Status: Former smoker alcohol intake: current Meds Home Medications and Allergies Home Medications Medication Instructions Recorded Confirmed Type aspirin 81 mg capsule 81 mg PO QWEEK ##0 01/17/11 12/11/23 History multivitamin 1 tab PO QWEEK ##0 06/07/11 12/11/23 History calcium citrate 250 mg 800 mg PO SEEINSTR ##0 03/11/12 12/11/23 History calcium-vitamin D3 5 mcg (200 unit) tablet (Citracal Regular) lactobacillus combination no.9 4 4,000 mmu cells PO DAILY 12/03/17 12/11/23 History billion cell capsule (Adult 50 Plus Probiotic) mv,Ca,yyv-BU-jgvqki no.157 PO DAILY 10/18/22 10/29/23 History [Estroven Maximum Strength] biotin 10 mg tablet 10 mg PO DAILY 09/09/23 12/11/23 History ferrous sulfate 325 mg (65 mg 325 mg PO DAILY 09/09/23 12/11/23 History iron) tablet (FeroSul) rhubarb root extract 4 mg tablet mg PO 09/09/23 10/29/23 History (Estroven Complete Menopause Relief) Allergies Allergy/AdvReac Type Severity Reaction Status Date / Time codeine [CODEINE] AdvReac Mild Gastrointestinal Verified 10/29/23 13:33 Upset-as a child Exam Vital Signs (past 8 hours): - 12/11/23 12:44 Temperature 97.4 F L Pulse Rate 88 Respiratory Rate 14 Blood Pressure 141/90 H Pulse Oximetry 98 Oxygen Delivery Method Room Air Oxygen Delivery Method Room Air Const General: No acute distress Resp Effort & Inspection: normal respiratory effort Assessment & Plan Assessment and plan (1) Abdominal distension: Status: Acute Plan We reviewed the risks and benefits of EGD and she would like to proceed. Time-Based Coding :: [TOTAL MINUTES] spent with patient and on the chart (including review of chart, obtaining history, exam, reviewing outside data, placing orders, documenting exam and treatment plan, and counseling patient) on [DATE].
[2023-12-11 13:43] VITALS: BP 124/80; PULSE 85; RESP 14; TEMP 37.2; O2SAT 96
[2023-12-11 13:45] VITALS: BP 114/92; PULSE 102; RESP 12; O2SAT 96
[2023-12-11 13:51] VITALS: BP 130/85; PULSE 85; RESP 14; TEMP 37.1; O2SAT 97
[2023-12-11 13:56] VITALS: BP 140/84; PULSE 80; RESP 12; TEMP 37.2; O2SAT 96
--- NOTE | 2023-12-18 14:46 | PM.OP.EGD ---
Operative Date/Time/Diagnoses Date of procedure: 12/11/23 Time of procedure: 13:36 Pre-op diagnosis: Abdominal bloating Post-op diagnosis: same Procedure & Clinicians Study performed: Esophagogastroduodenoscopy Same procedure as scheduled: Yes Surgeon: Jeremy Leon Procedure Notes Procedure in detail: Surgeon: Jeremy Leon MD Anesthesia: Marisela Dye timeout was performed. A bite blocked was placed. The patient was positioned in the left lateral decubitus position. Anesthesia was administered. The endoscope was inserted through the bite block and passed through the esophagus and stomach and into the duodenum. The duodenal mucosa appeared normal. Biopsies were taken from the duodenal mucosa with cold forceps. The scope was withdrawn into the duodenal bulb and no abnormalities were seen. The scope was withdrawn into the stomach. There was mild antritis and random biopsies were taken from the antrum with cold forceps. The rest of the stomach was normal. The scope was retroflexed and no abnormality was seen. The scope was withdrawn into the esophagus and no abnormalities were seen. The remainder of the esophagus was normal. The scope was withdrawn. The patient was awakened and brought to recovery. Sedation time: 7 minutes Findings: Mild antritis Post-procedure Disposition: PACU
== END 2023-12-11 14:02 | disposition home or self-care (01) ==
PROVIDERS: PCP Family Medicine; Referring Provider Surgery; Visit Provider Surgery
PROC: 0DJ08ZZ Inspection of Upper Intestinal Tract, Via Natural or Artificial Opening Endoscopic (ICD-10-PCS; CPT 43235; principal; 2023-12-11 13:30)
DX: K29.50 Unspecified chronic gastritis without bleeding (principal)
CPT/HCPCS: 43239; J2704

== ENCOUNTER → 2023-12-31 12:47 | Outpatient (CLI) | payer OTHER, SELFPAY ==
[2021-12-13 15:20] VITALS: BMI 21.6
--- NOTE | 2024-01-16 10:35 | DIET.OUTPTC ---
Dietary Outpatient Consultation Note Consultation Date: 12/31/2023 Assessment: Nutrition f/u for abd distention Reviewed supplements w/ pt. 3 supplements providing a mix of vitamins and minerals - over 100% of RDAs for Vitamin E, Vitamin A, and B vitamins and zinc, and iron. Currently not taking supplements regularly. Advised that, if pt desires to take supplements, only doing 1 of those supplement choices (such as a multivitamin for women her age) instead of taking all 3. Also sometimes taking Rhapontic Rhubarb root extract, omega 3 fatty acids, co-enzyme q-10, pre and probiotic. Advised caution for supplement with chicory root of unknown amount as ingredient d/t abd distension/bloating symptoms. Diet recall: 2 tbsp yogurt/juice soup - veg and rice noodles + bone broth - 1c + 1 tbsp cheese on top salad, pasta Nutrition Diagnosis: Inadequate energy intake r/t concern of food causing GI symptoms, limited tolerated options aeb diet recall, pt report Interventions: -Provided handout with list of foods to include into diet that may be best tolerated. Expressed that she may try other foods not listed in handout and have as tolerated, the foods from list may be helpful for initial liberalization of diet -Recc small frequent meals -4-6 daily - Working to increase intake while considering pt's concerns that food will cause GI upset -Reviewed supplements Goals- working to increased protein-energy intake with foods she already tolerated and trials of foods from list. 1. add 1-2 eggs between breakfast and lunch and 2. have 4-6 oz of fish 2x/wk with dinner or tofu with dinner and 3. to have additional snack like 1/4 c nuts and 1-3 oz hard cheese or cottage cheese 4. additional snacks or additions from list as tolerated Monitoring/Evaluations: f/u in 1 month - is going to have gastric emptying study Electronically Signed by: Leena Rutherford 01/16/24 10:35 Clinical Dietitian [address] [address]
== END ==
PROVIDERS: PCP Family Medicine; Referring Provider Family Medicine
DX: R14.0 Abdominal distension (gaseous) (principal); Z71.3 Dietary counseling and surveillance
CPT/HCPCS: 97803

== ENCOUNTER → 2024-01-09 07:32 | Outpatient (CLI) | payer OTHER, SELFPAY ==
[2021-12-13 15:20] VITALS: BMI 21.6
--- NOTE | 2024-01-09 07:33 | DI.NM.S_ITS ---
PROCEDURE: NM GASTRIC EMPTYING STUDY RADIOPHARMACEUTICAL: 1.0 mCi Tc-99m sulfur colloid in an egg sandwich. INDICATIONS: bloating TECHNIQUE: A Tc-99m labeled sulfur colloid labeled egg sandwich or oatmeal was served to the patient. Anterior and posterior planar images of the abdomen were obtained at 0 minutes and 30 minutes, then at hourly intervals up to 4 hours. The patient was upright and ambulating during the interval. COMPARISON: None. FINDINGS: The stomach has normal size, morphology, and position. There is normal emptying of solid gastric contents from the stomach by visual inspection. No gastroesophageal reflux is visualized. The percentage of tracer retained at specific time points are as follows: Time point Percent gastric retention Normal range 30 minutes 51.6 70% or more 1 hour 30.0 30% to 90% 2 hours 10.6 60% or less 3 hours 5.4 30% or less IMPRESSION: Rapid early gastric emptying at 30 minutes and borderline rapid emptying at 1 hour. Dictated by: Luis Carl M.D. on 01/09/2024 at 12:34 Approved by: Luis Carl M.D. on 01/09/2024 at 12:50
== END ==
PROVIDERS: PCP Family Medicine; Referring Provider Surgery; Visit Provider Surgery
DX: R14.0 Abdominal distension (gaseous) (principal)
CPT/HCPCS: 78264; A9541

== ENCOUNTER → 2024-07-30 12:12 | Outpatient (CLI) | payer OTHER, SELFPAY ==
[2021-12-13 15:20] VITALS: BMI 21.6
[2024-07-30 12:53] LABS: Add Manual Diff / Slide Review NO; Basophils Absolute Auto 100 /uL (0-100); Basophils Percent Auto 1.4 % (0-2); Eosinophils Absolute Auto 0 /uL (0-450); Hematocrit 38.1 % (36-46); Lymphocytes Absolute Auto 1300 /uL (1100-4500); Lymphocytes Percent Auto 30.8 % (25-40); Mean Corpuscular HGB Conc 34.2 % (30-36); Mean Corpuscular Hemoglobin 33.9 PG (26-34); Monocytes Absolute Auto 300 /uL (0-900); Monocytes Percent Auto 7.5 % (3-14); Neutrophils Absolute Auto 2500 /uL (1500-7000); Neutrophils Percent Auto 59.3 % (50-75); Platelet Count 214 X10^3/uL (150-400); Red Blood Cell Count 3.85 X10^6/uL (4.0-5.2); Red Cell Distribution Width 13.1 % (11.6-14.8); White Blood Cell Count 4.3 X10^3/uL (4.5-11.0)
[2024-07-30 13:21] LABS: Alanine Aminotransferase 72 IU/L (<35); Albumin Globulin Ratio 1.7 (1.0-2.8); Alkaline Phosphatase 65 U/L (38-126); Aspartate Aminotransferase 122 IU/L (14-36); BUN Creatinine Ratio 15.7 (6-22); Bilirubin Total 0.7 mg/dL (0.2-1.3); Blood Urea Nitrogen 11 mg/dL (7-17); Calcium 9.6 mg/dL (8.4-10.2); Carbon Dioxide 25 mmol/L (22-32); Chloride 100 mmol/L (98-107); Estimated Glomerular Filt Rate > 60 mL/min (>60); Glucose 101 mg/dL (80-110); HEMOLYSIS < 15 (0-50); Lipase 292 U/L (23-300); Potassium 4.7 mmol/L (3.4-5.1); Sodium 138 mmol/L (137-145)
[2024-07-30 13:22] LABS: C-Reactive Protein Quant < 0.5 mg/dL (<1.0)
[2024-07-30 13:33] LABS: Erythrocyte Sedimentation Rate 15 MM/HR (0-20)
[2024-07-30 13:48] LABS: Carcinoembryonic Antigen 3.8 ng/mL (0.1-3.0)
[2024-07-30 13:54] LABS: TSH w/ Reflex to FT4 1.93 uIU/mL (0.47-4.68)
== END ==
LOC: LAB 12:14
PROVIDERS: PCP Family Medicine; Referring Provider Physician Assistant; Visit Provider Physician Assistant
DX: R19.7 Diarrhea, unspecified (principal); Z90.49 Acquired absence of other specified parts of digestive tract; R14.0 Abdominal distension (gaseous); R74.8 Abnormal levels of other serum enzymes; R19.4 Change in bowel habit; Z85.038 Personal history of other malignant neoplasm of large intestine
CPT/HCPCS: 36415; 80053; 82378; 83690; 84443; 85025; 85651; 86140

== ENCOUNTER → 2024-08-07 10:17 | Outpatient (CLI) | payer OTHER, SELFPAY ==
[2021-12-13 15:20] VITALS: BMI 21.6
== END ==
LOC: LAB 10:19
PROVIDERS: PCP Family Medicine; Referring Provider Physician Assistant; Visit Provider Physician Assistant
DX: R19.7 Diarrhea, unspecified (principal); R19.4 Change in bowel habit; Z85.038 Personal history of other malignant neoplasm of large intestine; Z90.49 Acquired absence of other specified parts of digestive tract
CPT/HCPCS: 83993

== ENCOUNTER → 2024-08-18 07:17 | Outpatient (CLI) | payer OTHER, SELFPAY ==
[2021-12-13 15:20] VITALS: BMI 21.6
--- NOTE | 2024-08-18 07:18 | DI.US.S_ITS ---
PROCEDURE: US ABDOMEN LIMITED INDICATIONS: eval liver, elev LFT TECHNIQUE: Real-time scanning was performed of the abdominal and retroperitoneal organs, with image documentation. COMPARISON: [facility], [place], [place] GASTRIC EMPTYING STUDY, 01/09/2024, 8:08. [facility], CT, CT ABDOMEN PELVIS W CON, 10/03/2023, 14:46. MR, MR ABDOMEN LIVER PROTOCOL, 05/26/2023, 16:21. CT, CT ABDOMEN LIVER PROTOCOL, 11/20/2022, 9:16. [facility], US, US ABDOMEN LIMITED, 10/04/2022, 7:10. FINDINGS: Liver: Liver measures 16.0 cm with steatosis. Focus of increased echogenicity measuring 3.4 cm is present within the mid liver appearing unchanged. Gallbladder: No gallstones. No wall thickening. No pericholecystic edema. Negative sonographic Garcia's sign. Biliary ducts: Intrahepatic bile ducts are non-dilated. Extrahepatic bile duct caliber measures 4.6 mm. Normal is 6-7 mm or less in diameter, or 10 mm or less post-cholecystectomy. Pancreas: Visualized portions of the pancreas are sonographically normal. Miscellaneous: No free abdominal fluid. IMPRESSION: Hepatic steatosis. Unchanged appearance of hepatic hyper echogenicity suggestive of hemangioma. Dictated by: Gissell Couch M.D. on 08/18/2024 at 12:25 Approved by: Gissell Couch M.D. on 08/18/2024 at 12:26
== END ==
LOC: US 07:17
PROVIDERS: PCP Family Medicine; Referring Provider Family Medicine; Visit Provider Family Medicine
DX: R14.0 Abdominal distension (gaseous) (principal); R79.89 Other specified abnormal findings of blood chemistry; Z85.048 Personal history of other malignant neoplasm of rectum, rectosigmoid junction, and anus; K76.0 Fatty (change of) liver, not elsewhere classified
CPT/HCPCS: 76705

== ENCOUNTER → 2024-09-10 16:17 | Outpatient (CLI) | payer OTHER, SELFPAY ==
[2021-12-13 15:20] VITALS: BMI 21.6
[2024-09-10 18:15] LABS: Cancer Antigen 125 < 5.5 U/mL (0-35)
[2024-09-12 05:13] LABS: Alpha Fetoprotein 12.9 ng/mL (0.0-9.2); Cancer (Carbohydrate) Ag 19-9 15 U/mL (0-35)
[2024-09-14 15:40] LABS: Gastrin 111 pg/mL (0-115)
== END ==
PROVIDERS: PCP Family Medicine; Referring Provider Family Medicine; Visit Provider Physician Assistant
DX: R97.0 Elevated carcinoembryonic antigen [CEA] (principal); R78.89 Finding of other specified substances, not normally found in blood
CPT/HCPCS: 36415; 82105; 82172; 82247; 82465; 82941; 82947; 82977; 83010; 83883; 84450; 84460; 85049; 86301; 86304

== ENCOUNTER → 2024-10-06 12:03 | Outpatient (CLI) | payer OTHER, SELFPAY ==
[2021-12-13 15:20] VITALS: BMI 21.6
[2024-10-06 13:08] LABS: Hematocrit 37.9 % (36-46); Hemoglobin 12.9 g/dL (12.0-16.0)
== END ==
PROVIDERS: PCP Family Medicine; Visit Provider Physician Assistant
DX: K92.1 Melena (principal)
CPT/HCPCS: 36415; 85014; 85018

== ENCOUNTER → 2024-10-14 15:12 | Outpatient (CLI) | payer OTHER, SELFPAY ==
[2021-12-13 15:20] VITALS: BMI 21.6
[2024-10-14 16:36] LABS: Hematocrit 37.5 % (36-46); Hemoglobin 13.0 g/dL (12.0-16.0)
== END ==
PROVIDERS: PCP Family Medicine
DX: K92.1 Melena (principal)
CPT/HCPCS: 36415; 85014; 85018

== ENCOUNTER → 2025-01-12 12:48 | Outpatient (CLI) | payer OTHER, SELFPAY ==
[2021-12-13 15:20] VITALS: BMI 21.6
--- NOTE | 2025-01-12 12:52 | DI.MG.S_ITS ---
MM screening mammo BI: 01/12/2025. BI-RADS: 1 CLINICAL: 64-year old female for bilateral screening mammogram. Tyrer-Cuzick lifetime risk of 17.8%. Current reported family history of breast cancer: paternal grandmother and mother. PRIOR EXAMS 10/30/2023, 02/19/2022, 07/10/2020, 04/24/2019. MAMMOGRAPHY TECHNIQUE: 2D and 3D (tomosynthesis) digital mammographic views obtained, with additional images as needed for full coverage. Current study was also evaluated with a Computer Aided Detection (CAD) system. DENSITY C. The breasts are heterogeneously dense, which may obscure small masses. MAMMOGRAPHY FINDINGS Bilateral: No suspicious mass, asymmetry, microcalcification, or other abnormality seen. IMPRESSION: * No evidence of malignancy. RECOMMENDATIONS Bilateral * Annual screening mammography. OVERALL ASSESSMENT CATEGORY BI-RADS-1: Negative. The [employer] recommends annual screening mammography beginning at age 40 for women with average risk of breast cancer. ELECTRONICALLY SIGNED: Anastacia Young M.D. on 01/12/2025 at 10:28:57 PM PT Interpreting Station ID: [id number]
== END ==
LOC: MAMMO 12:50
PROVIDERS: PCP Family Medicine; Referring Provider Family Medicine; Visit Provider Family Medicine
DX: Z12.31 Encounter for screening mammogram for malignant neoplasm of breast (principal); Z80.3 Family history of malignant neoplasm of breast; R92.333 Mammographic heterogeneous density, bilateral breasts
CPT/HCPCS: 77063; 77067